=== PATIENT | male | born 1950 | race African-American/Black ===

== ENCOUNTER 2017-07-02 23:16 | Emergency (ER) | payer OTHER ==
[2017-07-03] MEDS ORDERED: ACETAMINOPHEN 500 MG TAB ONE (00:40)
[2017-07-03] MEDS ORDERED: IBUPROFEN 200 MG TAB PO ONE (00:40)
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
== END 2017-07-03 01:06 | disposition home or self-care (01) ==
LOC: ER 23:16
DX: M43.6 Torticollis (principal); I10 Essential (primary) hypertension; E11.9 Type 2 diabetes mellitus without complications; X58.XXXA Exposure to other specified factors, initial encounter; Y93.9 Activity, unspecified; Y92.009 Unspecified place in unspecified non-institutional (private) residence as the place of occurrence of the external cause; Z79.82 Long term (current) use of aspirin; Z88.0 Allergy status to penicillin; Z88.1 Allergy status to other antibiotic agents
CPT/HCPCS: 99283

== ENCOUNTER 2018-05-03 02:04 | Emergency (ER) | payer OTHER ==
[2018-05-03] MEDS ORDERED: NA CHLORIDE 0.9% 1,000 ML ONE (03:08)
[2018-05-03 03:11] LABS: Absolute Lymphocytes (CBC) 2.6 K/uL (0.7-4.9); Absolute Monocytes 0.8 K/uL (0.1-1.3); Absolute Neutrophil 4.6 K/uL (1.8-8.0); Basophils % 0.8 % (0-1.3); Eosinophils % 5.7 % (0-4.4); Hematocrit 41.8 % (39.6-49.0); Lymphocytes % 30.7 % (15.3-44.8); MPV 8.2 fL (7.6-11.3); Monocytes % 8.8 % (3.3-12.3); RBC Red Blood Cell Count 4.54 M/uL (4.33-5.43)
[2018-05-03 03:26] LABS: Albumin 3.8 g/dL (3.4-5.0); Bilirubin Direct 0.1 mg/dL (0-0.2); Bilirubin Total 0.4 mg/dL (0.2-1.0); Potassium 3.5 mmol/L (3.5-5.1); Protein, Total 7.6 g/dL (6.4-8.2)
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
--- NOTE | 2018-05-03 08:30 | RAD REPORT ---
EXAM DESCRIPTION: RAD - Abdomen Single View - 05/03/2018 3:39 am CLINICAL HISTORY: ABD PAIN Pain COMPARISON: No comparisons FINDINGS: The bowel gas pattern is non-obstructive. No evidence of free air or pneumatosis. No suspi cious calcifications. No significant bony findings. IMPRESSION: Negative examination.
== END 2018-05-03 04:47 | disposition home or self-care (01) ==
LOC: ER 02:04
DX: K59.00 Constipation, unspecified (principal); E11.9 Type 2 diabetes mellitus without complications; E78.00 Pure hypercholesterolemia, unspecified; I10 Essential (primary) hypertension; Z79.84 Long term (current) use of oral hypoglycemic drugs; Z79.899 Other long term (current) drug therapy
CPT/HCPCS: 36415; 74018; 80048; 80076; 83690; 85025; 96360; 96361; 99284; J7030

== ENCOUNTER 2018-11-17 08:09 | Emergency (ER) | payer OTHER ==
[2018-11-17] MEDS ORDERED: LEVALBUTEROL 1.25 MG/3 ML NEB ONE (08:23)
[2018-11-17] MEDS ORDERED: NA CHLORIDE 0.9% 1,000 ML ONE ×3 (08:29→09:38)
[2018-11-17 08:38] LABS: Absolute Lymphocytes (CBC) 2.4 K/uL (0.7-4.9); Hematocrit 42.5 % (39.6-49.0); Lymphocytes % 18.4 % (15.3-44.8); MPV 7.3 fL (7.6-11.3); RBC Red Blood Cell Count 4.69 M/uL (4.33-5.43)
[2018-11-17 08:46] LABS: Protime INR 1.21
[2018-11-17 08:56] LABS: ALT/SGPT 20 U/L (12-78); AST/SGOT 20 U/L (15-37); Albumin 3.1 g/dL (3.4-5.0); Alkaline Phosphatase 68 U/L (45-117); BUN Blood Urea Nitrogen 13 mg/dL (7-18); Bicarbonate 27 mmol/L (21-32); Bilirubin Direct 0.1 mg/dL (0-0.2); Bilirubin Total 0.4 mg/dL (0.2-1.0); Glucose Level 234 mg/dL (74-106); Magnesium 1.6 mg/dL (1.8-2.4); NT PRO-BNP 15 pg/mL (<125); Protein, Total 8.2 g/dL (6.4-8.2); Sodium Level 133 mmol/L (136-145); Troponin (Emerg Dept Use Only) < 0.02 ng/mL (0.0-0.045)
--- NOTE | 2018-11-17 08:59 | RAD REPORT ---
EXAM DESCRIPTION: Gill Mercer And Antoine (2 Views)11/17/2018 8:42 am CLINICAL HISTORY: Shortness of breath COMPARISON: None FINDINGS: Moderate bilateral patchy alveolar opacities are present. The heart probably is normal size. Mild prominence of the nusrat IMPRESSION: Moderate bilateral patchy alveolar opacities probably represent pneumonia. Mild prominence of the nusrat may represent pulmonary vessels or mild lymphadenopathy. If it is lymphad enopathy it may be reactive in nature. Follow-up chest x-ray after treatment recommended to reassess the lungs and nusrat
[2018-11-17] MEDS ORDERED: CEFTRIAXONE/SWI 1gm 1 GM/10 ML SYR ONE (09:09)
[2018-11-17] MEDS ORDERED: AZITHROMYCIN 250 MG TAB ONE (09:09)
[2018-11-17] MEDS ORDERED: ACETAMINOPHEN 325 MG TABLET ONE (09:31)
[2018-11-17] MEDS ORDERED: Magnesium Sulfate 2gm IVPB 2 G/50 ML BAG IV ONE (09:55)
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
--- NOTE | 2018-11-17 16:29 | EKG ---
Test Date: 2018-11-17 Test Time: 08:22:57 Radiologic Technologist Mammogram: KRISTINA MEASUREMENT RESULTS: Intervals: Rate: 124 MS: 158 QRSD: 80 QT: 306 QTc: 439 [place]: P: 33 MS: 158 QRS: -2 T: 46 INTERPRETIVE STATEMENTS: Sinus tachycardia Otherwise normal ECG Compared to ECG 11/18/1998 10:05:00 Sinus bradycardia no longer present ST (T wave) deviation no longer present Possible ischemia no longer present Electronically Signed On 11-17-18 16:26:15 CDT by Delvin Alegria
== END 2018-11-17 10:40 ==
LOC: ER 08:09
DX: J18.9 Pneumonia, unspecified organism (principal); R09.02 Hypoxemia; E83.42 Hypomagnesemia; F17.220 Nicotine dependence, chewing tobacco, uncomplicated; I10 Essential (primary) hypertension; E11.9 Type 2 diabetes mellitus without complications; Z88.0 Allergy status to penicillin; Z88.1 Allergy status to other antibiotic agents
CPT/HCPCS: 96365; 96361; 93005; 87040 ×2; 85025; 80048; 36415; 83735; 85610; 80076; 83605; 84484; 83880; 71046; 96375; 99285; J3475; J0696; J7030 ×3

== ENCOUNTER 2019-02-21 13:21 | Emergency (ER) | payer OTHER ==
[2019-02-21 14:06] LABS: Absolute Lymphocytes (CBC) 1.2 K/uL (0.7-4.9); Basophils % 0.7 % (0-1.3); Hematocrit 43.1 % (39.6-49.0); Lymphocytes % 10.5 % (15.3-44.8); MPV 8.7 fL (7.6-11.3); RBC Red Blood Cell Count 4.61 M/uL (4.33-5.43)
[2019-02-21] MEDS ORDERED: GLUCAGON 1 MG/VIAL IM PRN (14:09)
[2019-02-21] MEDS ORDERED: D50W 25 GM/50 ML SYRINGE IV PRN (14:09)
[2019-02-21] MEDS ORDERED: INSULIN -REGULAR HUMAN 50 UNIT/0.5 ML ML ONE (14:12)
[2019-02-21] MEDS ORDERED: INSULIN -REGULAR HUMAN 100 UNIT in NA CHLORIDE 0.9% 100 ML IV SCH (14:15)
[2019-02-21 14:23] LABS: Albumin 3.9 g/dL (3.4-5.0); Bilirubin Direct 0.1 mg/dL (0-0.2); Bilirubin Total 0.3 mg/dL (0.2-1.0); Potassium 4.8 mmol/L (3.5-5.1); Protein, Total 7.6 g/dL (6.4-8.2)
[2019-02-21] MEDS ORDERED: NA CHLORIDE 0.9% 500 ML ONE (14:31)
[2019-02-21 15:50] LABS: Blood Morphology Comment NOT SEEN (NOT SEEN); Platelet Estimate ADEQ
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
[2019-02-21 18:50] VITALS: BP 110/80; TEMP 98; O2SAT 100
== END 2019-02-21 18:34 | disposition home or self-care (01) ==
LOC: ER 13:21
DX: E11.65 Type 2 diabetes mellitus with hyperglycemia (principal); I10 Essential (primary) hypertension; E78.00 Pure hypercholesterolemia, unspecified; Z79.82 Long term (current) use of aspirin; Z88.0 Allergy status to penicillin; Z88.1 Allergy status to other antibiotic agents; Z88.2 Allergy status to sulfonamides; Z88.8 Allergy status to other drugs, medicaments and biological substances
CPT/HCPCS: 96361; 85025; 80048; 36415; 82947 ×5; 80076; 83690; 96374; 99284; J7040

== ENCOUNTER 2020-08-23 04:01 | Emergency (ER) | payer OTHER ==
[2020-08-23] MEDS ORDERED: METHYLPREDNISOLONE 125 MG INJ ONE (04:47)
[2020-08-23] MEDS ORDERED: KETOROLAC 30 MG/ML INJ ONE (04:47)
--- NOTE | 2020-08-23 04:47 | EDPHYS ---
Physician Documentation [facility] Name: Ronald Lino Age: 70 yrs Sex: Male : 1950 Arrival Date: 08/23/2020 Time: 04:04 Bed 17 Private MD: ED Physician Jordon Hawthorne HPI: 08/23 04:40 This 70 yrs old Black Male presents to ER via Ambulatory with complaints of Hand Pain. rn 04:40 The patient or guardian reports pain. The complaints affect the IP of right thumb, MCP rn of right thumb, PIP of right index finger, MCP of right index finger, PIP of right middle finger, MCP of right middle finger, PIP of right ring finger, MCP of right ring finger, DIP of right little finger and MCP of right little finger. Onset: The symptoms/episode began/occurred 2 day(s) ago. Modifying factors: The symptoms are alleviated by nothing, the symptoms are aggravated by making a fist, turning grgigs. Associated signs and symptoms: Pertinent negatives: cyanosis distally, fever, numbness distally, tingling distally. Severity of symptoms: At their worst the symptoms were mild, in the emergency department the symptoms are unchanged. The patient has not experienced similar symptoms in the past. The patient has not recently seen a physician. Reports 2 year diagnosis of rheumatoid arthritis, now having 2 days of right hand and wrist joint pain, no fever, no trauma. Reports on daily 5mg prednisone. . Historical: - Allergies: 04:24 PENICILLINS; ad5 - Immunization history:: Adult Immunizations up to date. - Social history:: Smoking status: unknown. - Family history:: not pertinent. - Hospitalizations: : No recent hospitalization is reported. ROS: 04:40 Constitutional: Negative for fever, chills, and weight loss, MS/Extremity: Negative for rn injury and deformity, Skin: Negative for injury, rash, and discoloration, Neuro: Negative for numbness, tingling Exam: 04:40 Constitutional: This is a well developed, well nourished patient who is awake, alert, rn and in no acute distress. MS/ Extremity: Pulses equal, no cyanosis. Neurovascular intact. No warmth, no deformity, no signs of trauma, no sign of cellulitis. Vital Signs: 04:22 BP 159 / 113; Pulse 71; Resp 18 S; Temp 97.9(O); Pulse Ox 98% on R/A; Weight 113.85 kg; ad5 Height 5 ft. 11 in. (180.34 cm); Pain 8/10; 04:54 BP 132 / 94; Pulse 66; Resp 16 S; Pulse Ox 96% on R/A; ad5 04:22 Body Mass Index 35.01 (113.85 kg, 180.34 cm) ad5 MDM: 04:05 Patient medically screened. rn 04:40 Differential diagnosis: arthritis. Data reviewed: vital signs, nurses notes, and as a rn result, I will discharge patient. Counseling: I had a detailed discussion with the patient and/or guardian regarding: the historical points, exam findings, and any diagnostic results supporting the discharge/admit diagnosis, the need for outpatient follow up, to return to the emergency department if symptoms worsen or persist or if there are any questions or concerns that arise at home. Special discussion: I discussed with the patient/guardian in detail that at this point there is no indication for admission to the hospital. It is understood, however, that if the symptoms persist or worsen the patient needs to return immediately for re-evaluation. Based on the history and exam findings, there is no indication for further emergent testing or inpatient evaluation. I discussed with the patient/guardian the need to see the information clerk cashier for further evaluation of the symptoms. Administered Medications: 04:33 Drug: TORadol (ketorolac) 30 mg Route: IM; Site: right deltoid; ad5 04:48 Follow up: Response: No adverse reaction ad5 04:34 Drug: SOLU-Medrol (methylPREDNISolone sodium succinate) 125 mg Route: IM; Site: left ad5 deltoid; 04:48 Follow up: Response: No adverse reaction ad5 Disposition: 08/23/20 04:46 Discharged to Home. Impression: Rheumatoid arthritis. - Condition is Stable. - Discharge Instructions: Rheumatoid Arthritis. - Prescriptions for Medrol (Eliu) 4 mg Oral Tablets, Dose Pack - take 1 tablet by ORAL route as directed - follow package instructions; 1 packet. - Medication Reconciliation Form, Thank You Letter, Antibiotic Education, Prescription Opioid Use form. - Follow up: Private Physician; When: As needed; Reason: Recheck today's complaints, Re-evaluation by your physician. - Problem is an ongoing problem. - Symptoms have improved. Signatures: Jordon Hawthorne MD MD rn Davidson, Andrea ad5 Corrections: (The following items were deleted from the chart) 04:55 04:46 08/23/2020 04:46 Discharged to Home. Impression: Rheumatoid arthritis. Condition ad5 is Stable. Forms are Medication Reconciliation Form, Thank You Letter, Antibiotic Education, Prescription Opioid Use. Follow up: Private Physician; When: As needed; Reason: Recheck today's complaints, Re-evaluation by your physician. Problem is an ongoing problem. Symptoms have improved. rn
--- NOTE | 2020-08-23 04:47 | ER ---
Nurse's Notes [facility] Name: Ronald Lino Age: 70 yrs Sex: Male : 1950 Arrival Date: 08/23/2020 Time: 04:04 Bed 17 Private MD: Diagnosis: Rheumatoid arthritis Presentation: 08/23 04:22 Chief complaint: Patient states: Pt c/o R hand pain that began yesterday, worse today. ad5 Hx of RA, on prednisone for this. Pt denies known injury, distal SMCs intact. No obvious deformity, pain worse with mvmt. Coronavirus screen: Client denies travel out of the [place] in the last 14 days. At this time, the client does not indicate any symptoms associated with coronavirus-19. Ebola Screen: Patient negative for fever greater than or equal to 101.5 degrees Fahrenheit, and additional compatible Ebola Virus Disease symptoms Patient denies exposure to infectious person. Patient denies travel to an Ebola-affected area in the 21 days before illness onset. No symptoms or risks identified at this time. Initial Sepsis Screen: Does the patient meet any 2 criteria? No. Patient's initial sepsis screen is negative. Does the patient have a suspected source of infection? No. Patient's initial sepsis screen is negative. Risk Assessment: Do you want to hurt yourself or someone else? Patient reports no desire to harm self or others. Onset of symptoms was August 22, 2020. 04:22 Method Of Arrival: Ambulatory ad5 04:22 Acuity: LILA 4 ad5 Historical: - Allergies: 04:24 PENICILLINS; ad5 - Immunization history:: Adult Immunizations up to date. - Social history:: Smoking status: unknown. - Family history:: not pertinent. - Hospitalizations: : No recent hospitalization is reported. Screenin:26 Abuse screen: Denies threats or abuse. Denies injuries from another. Nutritional ad5 screening: No deficits noted. Tuberculosis screening: No symptoms or risk factors identified. Fall Risk None identified. Assessment: 04:24 General: Appears in no apparent distress. comfortable, Behavior is calm, cooperative, ad5 appropriate for age. Pain: Complains of pain in right hand Pain does not radiate. Neuro: No deficits noted. Level of Consciousness is awake, alert, obeys commands, Oriented to person, place, time, situation, Appropriate for age Hazard Mitigation Officer are equal bilaterally Moves all extremities. Gait is steady, Speech is normal, Facial symmetry appears normal. Cardiovascular: No deficits noted. Denies chest pain, palpitations, shortness of breath, Heart tones present Capillary refill < 3 seconds Clubbing of nail beds is absent JVD is absent Patient's skin is warm and dry. Respiratory: No deficits noted. Airway is patent Trachea midline Respiratory effort is even, unlabored, Respiratory pattern is regular, symmetrical. GI: No deficits noted. : No deficits noted. EENT: No deficits noted. Derm: No deficits noted. Musculoskeletal: Circulation, motion, and sensation intact. Capillary refill < 3 seconds, Range of motion: intact in all extremities, Reports pain in right hand. 04:54 Reassessment: Patient and/or family updated on plan of care and expected duration. Pain ad5 level reassessed. Patient is alert, oriented x 3, equal unlabored respirations, skin warm/dry/pink. Patient states feeling better. Patient states symptoms have improved. Pain: Complains of pain in right hand Pain currently is 5 out of 10 on a pain scale. Vital Signs: 04:22 BP 159 / 113; Pulse 71; Resp 18 S; Temp 97.9(O); Pulse Ox 98% on R/A; Weight 113.85 kg; ad5 Height 5 ft. 11 in. (180.34 cm); Pain 8/10; 04:54 BP 132 / 94; Pulse 66; Resp 16 S; Pulse Ox 96% on R/A; ad5 04:22 Body Mass Index 35.01 (113.85 kg, 180.34 cm) ad5 ED Course: 04:04 Patient arrived in ED. bp1 04:05 Jordon Hawthorne MD is Attending Physician. rn 04:16 Aristeo Sánchez is Primary Nurse. ad5 04:24 Triage completed. ad5 04:24 Arm band placed on. ad5 04:26 Patient has correct armband on for positive identification. Bed in low position. Call ad5 light in reach. Side rails up X 1. Pulse ox on. NIBP on. Door closed. Noise minimized. 04:54 No provider procedures requiring assistance completed. Patient did not have IV access ad5 during this emergency room visit. Administered Medications: 04:33 Drug: TORadol (ketorolac) 30 mg Route: IM; Site: right deltoid; ad5 04:48 Follow up: Response: No adverse reaction ad5 04:34 Drug: SOLU-Medrol (methylPREDNISolone sodium succinate) 125 mg Route: IM; Site: left ad5 deltoid; 04:48 Follow up: Response: No adverse reaction ad5 Outcome: 04:46 Discharge ordered by . rn 04:55 Discharged to home ambulatory. ad5 04:55 Condition: stable 04:55 Discharge instructions given to patient, Instructed on discharge instructions, follow up and referral plans. medication usage, Demonstrated understanding of instructions, follow-up care, medications. 04:55 Patient left the ED. ad5 Signatures: Jordon Hawthorne MD MD rn [place]ia[place], Brittany bp1 Davidson, Andrea ad5
[2020-08-23 05:19] VITALS: TEMP 97.9
[2020-08-23 05:21] VITALS: BP 132/94; O2SAT 96
== END 2020-08-23 04:55 | disposition home or self-care (01) ==
LOC: ER 04:01
DX: M06.9 Rheumatoid arthritis, unspecified (principal)
CPT/HCPCS: 96372; 99283; J2930

== ENCOUNTER 2020-10-12 20:46 | Emergency (ER) | payer OTHER ==
--- NOTE | 2020-10-12 21:58 | RAD REPORT ---
EXAM DESCRIPTION: RAD - Chest Single View - 10/12/2020 9:46 pm CLINICAL HISTORY: anxiety spell Chest pain. COMPARISON: <Comparisons> FINDINGS: Portable technique limits examination quality. The lungs are grossly clear. The heart is normal in size. No displaced fractures. IMPRESSION: No acute intrathoracic process suspected.
[2020-10-12 22:19] LABS: Absolute Lymphocytes (CBC) 3.9 K/uL (0.7-4.9); Basophils % 1.3 % (0-1.3); Hematocrit 43.2 % (39.6-49.0); Lymphocytes % 35.8 % (15.3-44.8); MPV 8.4 fL (7.6-11.3)
[2020-10-12 22:30] LABS: Potassium 4.4 mmol/L (3.5-5.1)
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
--- NOTE | 2020-10-12 23:21 | EDPHYS ---
Physician Documentation [facility] Name: Ronald Lino Age: 70 yrs Sex: Male : 1950 Arrival Date: 10/12/2020 Time: 20:58 Bed 2 Private MD: ED Physician Rajat Lim HPI: 10/12 21:34 This 70 yrs old Black Male presents to ER via Ambulatory with complaints of Dizziness. pkl 21:34 Feeling anxious. Onset: The symptoms/episode began/occurred just prior to arrival, and pkl improved. Historical: - Allergies: 21:07 PENICILLINS; em - PMHx: 21:07 Diabetes mellitus; Atrial fibrillation; RA; em - PSHx: 21:07 knee; em - Immunization history:: Adult Immunizations up to date. - Social history:: Smoking status: Patient denies any tobacco usage or history of. ROS: 21:34 Eyes: Negative for injury, pain, redness, and discharge, ENT: Negative for injury, pkl pain, and discharge, Neck: Negative for injury, pain, and swelling, Cardiovascular: Negative for chest pain, palpitations, and edema, Respiratory: Negative for shortness of breath, cough, wheezing, and pleuritic chest pain, Abdomen/GI: Negative for abdominal pain, nausea, vomiting, diarrhea, and constipation, Back: Negative for injury and pain, : Negative for injury, bleeding, discharge, and swelling, MS/Extremity: Negative for injury and deformity, Skin: Negative for injury, rash, and discoloration, Neuro: Negative for headache, weakness, numbness, tingling, and seizure. 21:34 Psych: Positive for anxiety. Exam: 21:34 Head/Face: Normocephalic, atraumatic. Eyes: Pupils equal round and reactive to light, pkl extra-ocular motions intact. Lids and lashes normal. Conjunctiva and sclera are non-icteric and not injected. Cornea within normal limits. Periorbital areas with no swelling, redness, or edema. ENT: Nares patent. No nasal discharge, no septal abnormalities noted. Tympanic membranes are normal and external auditory canals are clear. Oropharynx with no redness, swelling, or masses, exudates, or evidence of obstruction, uvula midline. Mucous membranes moist. Neck: Trachea midline, no thyromegaly or masses palpated, and no cervical lymphadenopathy. Supple, full range of motion without nuchal rigidity, or vertebral point tenderness. No Meningismus. Chest/axilla: Normal chest wall appearance and motion. Nontender with no deformity. No lesions are appreciated. Cardiovascular: Regular rate and rhythm with a normal S1 and S2. No gallops, murmurs, or rubs. Normal PMI, no JVD. No pulse deficits. Respiratory: Lungs have equal breath sounds bilaterally, clear to auscultation and percussion. No rales, rhonchi or wheezes noted. No increased work of breathing, no retractions or nasal flaring. Abdomen/GI: Soft, non-tender, with normal bowel sounds. No distension or tympany. No guarding or rebound. No evidence of tenderness throughout. Back: No spinal tenderness. No costovertebral tenderness. Full range of motion. Skin: Warm, dry with normal turgor. Normal color with no rashes, no lesions, and no evidence of cellulitis. MS/ Extremity: Pulses equal, no cyanosis. Neurovascular intact. Full, normal range of motion. Neuro: Awake and alert, GCS 15, oriented to person, place, time, and situation. Cranial nerves II-XII grossly intact. Motor strength 5/5 in all extremities. Sensory grossly intact. Cerebellar exam normal. Normal gait. 21:34 Psych: Behavior/mood is pleasant, Affect is calm, Oriented to person, place, time, Patient has no thoughts/intents to harm self or others. Judgement / Insight is normal. Vital Signs: 21:05 BP 155 / 87; Pulse 83; Resp 15; Temp 98.0(O); Pulse Ox 99% on R/A; Weight 114.31 kg; em Height 5 ft. 11 in. (180.34 cm); Pain 0/10; 23:33 BP 135 / 89; Pulse 83; Resp 15; Temp 98.2; Pulse Ox 100% on R/A; Pain 0/10; bs2 21:05 Body Mass Index 35.15 (114.31 kg, 180.34 cm) em MDM: 21:15 Patient medically screened. pkl 23:17 Data reviewed: vital signs, nurses notes, lab test result(s), EKG, radiologic studies, pkl CT scan. ED course: Patient feeling better. Asymptomatic. Advised to follow up with PCP in 2 to 3 days. Advised to return if necessary Patient understood instruction. 10/12 21:32 Order name: CBC with Diff; Complete Time: 22:40 pkl 10/12 21:32 Order name: Chem 7; Complete Time: 22:40 pkl 10/12 21:32 Order name: XRAY CXR (1 view); Complete Time: 22:40 pkl 10/12 21:32 Order name: EKG; Complete Time: 21:33 pkl Administered Medications: No medications were administered Disposition Summary: 10/12/20 23:20 Discharge Ordered Location: Home pkl Problem: new pkl Symptoms: have improved pkl Condition: Stable pkl Diagnosis - Anxiety episode pkl Followup: pkl - With: Private Physician - When: 2 - 3 days - Reason: Re-evaluation by your physician Forms: - Medication Reconciliation Form pkl - Thank You Letter pkl - Antibiotic Education pkl - Prescription Opioid Use pkl Signatures: Dispatcher [employer] Rajat Barton MD MD pkl Gabriele Valdovinos, RN RN em
[2020-10-12 23:44] VITALS: BP 135/89; TEMP 98.2; O2SAT 100
--- NOTE | 2020-10-13 13:46 | EKG ---
Test Date: 2020-10-12 Test Time: 23:13:21 Assembler Hydraulic Backhoe: NISH MEASUREMENT RESULTS: Intervals: Rate: 67 MA: 158 QRSD: 82 QT: 364 QTc: 384 [place]: P: 37 MA: 158 QRS: -6 T: 20 INTERPRETIVE STATEMENTS: Normal sinus rhythm Normal ECG Compared to ECG 11/17/2018 08:22:57 Sinus tachycardia no longer present Electronically Signed On 10-13-20 13:45:28 CDT by Delvin Alegria
== END 2020-10-12 23:34 | disposition home or self-care (01) ==
LOC: ER 20:46
DX: F41.9 Anxiety disorder, unspecified (principal); Z88.0 Allergy status to penicillin
CPT/HCPCS: 36415; 71045; 80048; 85025; 93005; 99284

== ENCOUNTER 2021-05-30 21:01 | Emergency (ER) | payer OTHER ==
[2021-05-30 21:45] LABS: Absolute Lymphocytes (CBC) 3.6 K/uL (0.7-4.9); Hematocrit 45.8 % (39.6-49.0); Lymphocytes % 40.7 % (15.3-44.8); MPV 7.9 fL (7.6-11.3); RBC Red Blood Cell Count 5.08 M/uL (4.33-5.43)
[2021-05-30 22:03] LABS: ALT/SGPT 25 U/L (12-78); AST/SGOT 19 U/L (15-37); Albumin 3.8 g/dL (3.4-5.0); Alkaline Phosphatase 79 U/L (45-117); BUN Blood Urea Nitrogen 11 mg/dL (7-18); Bicarbonate 25 mmol/L (21-32); Bilirubin Direct < 0.1 mg/dL (0-0.2); Bilirubin Total 0.3 mg/dL (0.2-1.0); Glucose Level 205 mg/dL (74-106); Magnesium 2.1 mg/dL (1.8-2.4); NT PRO-BNP 19 pg/mL (<125); Potassium 3.7 mmol/L (3.5-5.1); Protein, Total 7.6 g/dL (6.4-8.2); Sodium Level 136 mmol/L (136-145)
[2021-05-30] MEDS ORDERED: MAGNES/ALUMIN/SIMET 30ML UCUP ONE (22:33)
[2021-05-30] MEDS ORDERED: PANTOPRAZOLE 40 MG INJ ONE (22:33)
[2021-05-30] MEDS ORDERED: LIDOCAINE VISCOUS 2% SOLN 15 ML UDC ONE (22:34)
--- NOTE | 2021-05-31 00:55 | EDPHYS ---
Physician Documentation [facility] Name: Ronald Lino Age: 70 yrs Sex: Male : 1950 Arrival Date: 05/30/2021 Time: 21:04 Bed 5 Private MD: ED Physician Elie Canada HPI: 05/30 23:21 This 70 yrs old Black Male presents to ER via Ambulatory with complaints of Chest Pain. kb 23:21 The patient or guardian reports chest pain that is located primarily in the substernal kb area. Onset: yesterday. The pain does not radiate. Associated signs and symptoms: The patient has no apparent associated signs or symptoms. The chest pain is described as burning. Duration: The patient or guardian reports a single episode, that is still ongoing. Modifying factors: The symptoms are alleviated by nothing. the symptoms are aggravated by coffee and grapefruit. Severity of pain: At its worst the pain was mild moderate in the emergency department the pain is unchanged. The patient has experienced similar episodes in the past, a few times. The patient has not recently seen a physician. Pt reports burning pain to middle of chest. States he has GERD, but wanted to be on the safe side and come get checked out. Pain started yesterday. Historical: - Allergies: 21:14 PENICILLINS; ll3 - PMHx: 21:14 Atrial fibrillation; diabetes mellitus; RA; ll3 - PSHx: 21:14 knee; ll3 - Immunization history:: Client reports receiving the 2nd dose of the Covid vaccine. - Social history:: Smoking status: Patient denies any tobacco usage or history of. ROS: 23:18 Constitutional: Negative for fever, chills, and weight loss. kb 23:18 Cardiovascular: Positive for chest pain, Negative for edema, orthopnea, palpitations, paroxysmal nocturnal dyspnea. 23:18 All other systems are negative. Exam: 23:17 Constitutional: This is a well developed, well nourished patient who is awake, alert, kb and in no acute distress. Head/Face: Normocephalic, atraumatic. ENT: Moist Mucous membranes Cardiovascular: Regular rate and rhythm with a normal S1 and S2. No gallops, murmurs, or rubs. No pulse deficits. Respiratory: Respirations even and unlabored. No increased work of breathing. Talking in full sentences Abdomen/GI: Soft, non-tender. No distention Skin: Warm, dry with normal turgor. Normal color. MS/ Extremity: Pulses equal, no cyanosis. Neurovascular intact. Full, normal range of motion. Neuro: Awake and alert, GCS 15, oriented to person, place, time, and situation. Moves all extremities. Normal gait. Psych: Awake, alert, with orientation to person, place and time. Behavior, mood, and affect are within normal limits. 23:17 ECG was reviewed by the Attending Physician. Vital Signs: 21:26 BP 160 / 92; Pulse 78; Resp 18; Pulse Ox 100% ; Weight 114.31 kg; Height 5 ft. 11 in. lr4 (180.34 cm); 22:40 BP 137 / 78; Pulse 80; Resp 16; Pulse Ox 100% on R/A; st1 05/31 01:04 BP 121 / 94; Pulse 72; Resp 15; Pulse Ox 99% on R/A; ll3 05/30 21:26 Body Mass Index 35.15 (114.31 kg, 180.34 cm) lr4 MDM: 05/30 21:08 Patient medically screened. 23:17 Data reviewed: vital signs, nurses notes. Data interpreted: Pulse oximetry: on room air kb is 100 %. Interpretation: normal. 23:40 Counseling: I had a detailed discussion with the patient and/or guardian regarding: the historical points, exam findings, and any diagnostic results supporting the discharge/admit diagnosis, lab results, radiology results, the need for outpatient follow up, a family practitioner, to return to the emergency department if symptoms worsen or persist or if there are any questions or concerns that arise at home. 05/31 00:54 Data reviewed: I have discussed the patient's presentation/case with the attending Emergency Department Physician;. 05/30 21:08 Order name: Basic Metabolic Panel; Complete Time: 22:06 kb 05/30 21:08 Order name: CBC with Diff; Complete Time: 21:48 kb 05/30 21:08 Order name: LFT's; Complete Time: 22:06 kb 05/30 21:08 Order name: Magnesium; Complete Time: 22:06 kb 05/30 21:08 Order name: NT PRO-BNP; Complete Time: 22:06 kb 05/30 21:08 Order name: PT-INR; Complete Time: 21:48 kb 05/30 21:08 Order name: Troponin HS; Complete Time: 22:06 kb 05/30 21:08 Order name: XRAY Chest (1 view) kb 05/30 21:08 Order name: EKG; Complete Time: 21:09 kb 05/30 21:08 Order name: Cardiac monitoring; Complete Time: 21:29 kb 05/30 23:01 Order name: Troponin High Sensitivity; Complete Time: 00:53 kb 05/30 23:01 Order name: EKG; Complete Time: 23:01 kb 05/30 21:08 Order name: EKG - Nurse/Tech; Complete Time: 21:25 kb 05/30 21:08 Order name: IV Saline Lock; Complete Time: 21:25 kb 05/30 21:08 Order name: Labs collected and sent; Complete Time: 21:26 kb 05/30 21:08 Order name: O2 Per Protocol; Complete Time: 21:26 kb 05/30 21:08 Order name: O2 Sat Monitoring; Complete Time: 21:26 kb 05/30 23:01 Order name: EKG - Nurse/Tech; Complete Time: 23:08 kb EC/18 23:17 Rate is 61 beats/min. Rhythm is regular. QRS [place] is Normal. [place] interval is normal at kb 164 msec. QRS interval is normal at 88 msec. QT interval is normal at 388 msec. Administered Medications: 22:38 Drug: ProTONIX (pantoprazole) 40 mg Route: IVP; Site: right antecubital; lr4 22:39 Drug: GI Cocktail without - (Maalox Suspension 30 ml, Lidocaine Liquid 2 % 15 lr4 ml) Route: PO; Disposition: 05/31 02:34 Co-signature as Attending Physician, Elie Canada MD I agree with the assessment and kdr plan of care. Disposition Summary: 05/31/21 00:54 Discharge Ordered Location: Home kb Condition: Stable kb Diagnosis - Chest pain, unspecified kb Followup: kb - With: Emergency Department - When: As needed - Reason: Worsening of condition Followup: kb - With: Private Physician - When: 2 - 3 days - Reason: Recheck today's complaints, Continuance of care, Re-evaluation by your physician Discharge Instructions: - Discharge Summary Sheet kb - Nonspecific Chest Pain, Adult, [id number] kb Forms: - Medication Reconciliation Form kb - Thank You Letter kb - Antibiotic Education kb - Prescription Opioid Use kb Signatures: Dispatcher [employer] EDJazmin Harris, MUSHROOM GROWING SUPERVISOR-Edilberto ZURITA-Elie Gonsales MD MD kdr Loubet, Lynsea, RN RN ll3 Jemima Martinez RN RN lr4 Corrections: (The following items were deleted from the chart) 05/30 21:31 21:09 Chest Single View+RAD.RAD.BRZ ordered. EDMS EDMS
--- NOTE | 2021-05-31 00:55 | ER ---
Nurse's Notes [facility] Name: Ronald Lino Age: 70 yrs Sex: Male : 1950 Arrival Date: 05/30/2021 Time: 21:04 Bed 5 Private MD: Diagnosis: Chest pain, unspecified Presentation: 05/30 21:11 Chief complaint: Patient states: States "having a burning sensation in chest, thought ll3 it might be heart burn but it didn't go away, wanted to come get checked out because I am on digitalis". Coronavirus screen: Vaccine status: Patient reports being unvaccinated. At this time, the client does not indicate any symptoms associated with coronavirus-19. Ebola Screen: No symptoms or risks identified at this time. Initial Sepsis Screen: Does the patient meet any 2 criteria? No. Patient's initial sepsis screen is negative. Does the patient have a suspected source of infection? No. Patient's initial sepsis screen is negative. Risk Assessment: Do you want to hurt yourself or someone else? Patient reports no desire to harm self or others. Onset of symptoms was May 29, 2021. 21:11 Method Of Arrival: Ambulatory ll3 21:11 Acuity: LILA 3 ll3 Triage Assessment: 21:14 General: Appears in no apparent distress. comfortable, Behavior is calm, cooperative. ll3 Pain: Complains of pain in CP. Cardiovascular: Reports chest pain. Respiratory: Respiratory effort is even, unlabored, Respiratory pattern is regular, symmetrical. Derm: Skin is pink, warm \\T\\ dry. Historical: - Allergies: 21:14 PENICILLINS; ll3 - PMHx: 21:14 Atrial fibrillation; diabetes mellitus; RA; ll3 - PSHx: 21:14 knee; ll3 - Immunization history:: Client reports receiving the 2nd dose of the Covid vaccine. - Social history:: Smoking status: Patient denies any tobacco usage or history of. Screenin:41 Abuse screen: Denies threats or abuse. Nutritional screening: No deficits noted. st1 Tuberculosis screening: No symptoms or risk factors identified. Fall Risk None identified. Fall in past 12 months (25 points). No secondary diagnosis (0 pts). IV access (20 points). Ambulatory Aid- None/Bed Rest/Nurse Assist (0 pts). Gait- Normal/Bed Rest/Wheelchair (0 pts) Mental Status- Oriented to own ability (0 pts). Total Rogel Fall Scale indicates No Risk (0-24 pts). Assessment: 21:23 General: Appears in no apparent distress. comfortable, Behavior is calm, cooperative. lr4 Pain: Denies pain. Pain does not radiate. Pain began 1 day ago. Neuro: No deficits noted. Neuro: Level of Consciousness is awake, alert, obeys commands, Oriented to person, place, time, situation, Appropriate for age Crew Clerk are equal bilaterally Moves all extremities. Speech is normal. Cardiovascular: No deficits noted. Respiratory: No deficits noted. GI: Pt reports off and on midsternal burning worse after eating or drinking since yesterday. Vital Signs: 21:26 BP 160 / 92; Pulse 78; Resp 18; Pulse Ox 100% ; Weight 114.31 kg; Height 5 ft. 11 in. lr4 (180.34 cm); 22:40 BP 137 / 78; Pulse 80; Resp 16; Pulse Ox 100% on R/A; st1 05/31 01:04 BP 121 / 94; Pulse 72; Resp 15; Pulse Ox 99% on R/A; ll3 05/30 21:26 Body Mass Index 35.15 (114.31 kg, 180.34 cm) lr4 ED Course: 05/30 21:04 Patient arrived in ED. jj6 21:07 Mariel Villarreal, RN is Primary Nurse. st1 21:08 Jazmin Coronado FNP-C [facility] kb 21:08 Elie Canada MD is Attending Physician. kb 21:14 Triage completed. ll3 21:14 Arm band placed on Patient placed in an exam room. ll3 21:15 EKG done. lr4 21:27 Patient has correct armband on for positive identification. Bed in low position. Call lr4 light in reach. Side rails up X 1. monitoring coordinator on. Pulse ox on. NIBP on. 21:27 No provider procedures requiring assistance completed. Inserted saline lock: 20 gauge lr4 in right antecubital area, using aseptic technique. ,using aseptic technique. started by Mariel SIMMONS. Patient maintains SpO2 saturation greater than 95% on room air. 21:29 Basic Metabolic Panel Sent. lr4 21:29 CBC with Diff Sent. lr4 21:29 LFT's Sent. lr4 21:30 Magnesium Sent. lr4 21:30 NT PRO-BNP Sent. lr4 21:30 PT-INR Sent. lr4 21:30 Troponin HS Sent. lr4 22:03 XRAY Chest (1 view) In Process Unspecified. EDMS 23:17 EKG done. lr4 05/31 00:20 Diet: Patient given juice. sf1 00:20 Troponin High Sensitivity Sent. sf1 01:05 IV discontinued, intact, bleeding controlled, No redness/swelling at site. Pressure ll3 dressing applied. Administered Medications: 05/30 22:38 Drug: ProTONIX (pantoprazole) 40 mg Route: IVP; Site: right antecubital; lr4 22:39 Drug: GI Cocktail without - (Maalox Suspension 30 ml, Lidocaine Liquid 2 % 15 lr4 ml) Route: PO; Outcome: 05/31 00:54 Discharge ordered by . kb 01:05 Discharged to home ambulatory. ll3 01:05 Condition: stable 01:05 Discharge instructions given to patient, Instructed on discharge instructions, follow up and referral plans. Demonstrated understanding of instructions, follow-up care. 01:06 Patient left the ED. ll3 Signatures: Dispatcher [employer] EDMS Jazmin Coronado, SENIOR SYSTEMS PROGRAMMER-C SENIOR SYSTEMS PROGRAMMER-CkYara [id number] Melvina Conway RN RN ll3 Mariel Villarreal RN RN st1 Pat Campbell RN RN sf1 Jemima Martinez RN RN lr4
[2021-05-31 01:33] VITALS: BP 121/94; O2SAT 99
--- NOTE | 2021-05-31 08:09 | RAD REPORT ---
EXAM DESCRIPTION: RAD - Chest Single View - 05/30/2021 10:03 pm CLINICAL HISTORY: CHEST PAIN COMPARISON: Portable 10/12/2020 TECHNIQUE: AP portable chest image was obtained 05/30/2021 10:03 pm . FINDINGS: Lung volumes are low. Interstitial markings are prominent believed be baseline pattern acc entuated by shallow inspiration. No new mass or consolidation. Interstitial pattern matches the prior study. Trachea is midline. Heart and vasculature are normal. No measurable pleural effusion and no pneumotho rax. No acute bony abnormality seen. No acute aortic findings suspected. IMPRESSION: No acute cardiopulmonary process. Above detailed findings are stable from October 2020 imaging. Baseline prominence of the interstitial pa ttern could mask an early edema or infiltrate process.
--- NOTE | 2021-05-31 18:17 | EKG ---
Test Date: 2021-05-30 Test Time: 23:17:10 Airline Radio Operator: YVAN MEASUREMENT RESULTS: Intervals: Rate: 61 MT: 164 QRSD: 88 QT: 388 QTc: 390 [place]: P: 23 MT: 164 QRS: 5 T: 14 INTERPRETIVE STATEMENTS: Normal sinus rhythm Normal ECG Compared to ECG 05/30/2021 21:15:57 No significant changes Electronically Signed On 05-31-21 18:17:10 FRUIT CANNER by Delvin Alegria
--- NOTE | 2021-05-31 18:18 | EKG ---
Test Date: 2021-05-30 Test Time: 21:15:57 Book Illustrator: YVAN MEASUREMENT RESULTS: Intervals: Rate: 66 FL: 172 QRSD: 92 QT: 382 QTc: 400 [place]: P: 46 FL: 172 QRS: 6 T: 51 INTERPRETIVE STATEMENTS: Normal sinus rhythm Normal ECG Compared to ECG 10/12/2020 23:13:21 No significant changes Electronically Signed On 05-31-21 18:17:14 DOOR LINER HELPER by Delvin Alegria
== END 2021-05-31 01:06 | disposition home or self-care (01) ==
LOC: ER 21:01
DX: R07.9 Chest pain, unspecified (principal); I48.91 Unspecified atrial fibrillation; E11.9 Type 2 diabetes mellitus without complications; Z88.0 Allergy status to penicillin
CPT/HCPCS: 93005 ×2; 85025; 80048; 36415; 83735; 85610; 80076; 84484 ×2; 83880; 71045; 96374; 99285; C9113

== ENCOUNTER 2021-11-03 21:31 | Emergency (ER) | payer OTHER ==
--- OUTSIDE RECORDS SUMMARY | 2021-11-03 21:35 | XMS REPORT | Continuity of Care Document ---
:1950 Author Organization [facility] t Address [facility] [place] [address] [place] [id number] Care Team Providers Name Role Phone Unavailable Unavailable Unavailable Problems This patient has no known problems. Allergies, Adverse Reactions, Alerts This patient has no known allergies or adverse reactions. Medications This patient has no known medications. Procedures This patient has no known procedures. Results Test Description Test Time Test Comments Results Result Comments Source Basic Metabolic Panel 2019-01-08 08:51:26 Test Item Value Reference Range Interpretation Comme nts Sodium Level (test code = Sodium Level) 142.0 mmol/L 135.0-145.0 Potassium Level (test code = Potassium Level) 3.9 mmol/L 3.5-5.1 Chloride Level (test code = Chloride Level) 101 mmol/L 98-105 CO2 (test code = CO2) 31 mmol/L 22-29 H Anion Gap (test code = Anion Gap) 10 mmol/L 7-16 BUN (test code = BUN) 12.10 mg/dL 8.00-23.00 Creatinine Level (test code = Creatinine Level) 0.90 mg/dL 0.70-1 .20 BUN/Creat Ratio (test code = BUN/Creat Ratio) 13 N Glucose Level (test code = Glucose Level) 95 mg/dL 70-115 Calcium Level (test code = Calcium Level) 9.5 mg/dL 8.3-10.5 Creatine [id number] 08:51:26 Test Item Value Reference Range Interpretation Comments CK (test code = CK) 38 U/L 39-308 L Basic Metabolic [id number] 08:51:26 Test Item Value Reference Range Interpretation Comments Sodium Level (test 142.0 mmol/L 135.0-145.0 code = Sodium Level) Potassium Level 3.9 mmol/L 3.5-5.1 (test code = Potassium Level) Chloride Level (test 101 mmol/L 98-105 code = Chloride Level) CO2 (test code = 31 mmol/L 22-29 H CO2) Anion Gap (test code 10 mmol/L 7-16 = Anion Gap) BUN (test code = 12.10 mg/dL 8.00-23.00 BUN) Creatinine Level 0.90 mg/dL 0.70-1.20 (test code = Creatinine Level) BUN/Creat Ratio 13 N (test code = BUN/Creat Ratio) Glucose Level (test 95 mg/dL 70-115 code = Glucose Level) Calcium Level (test 9.5 mg/dL 8.3-10.5 code = Calcium Level) eGFR AA (test code = >60 N eGFR (e stimated eGFR AA) mL/min/1.73 m2 Glomerular Filtration Rate ) is an estimated va lue, calculated from the patient's serum creatinine usin g the MDRD equation. It is NOT the patient 's actual GFR. The eGFR provides a more clinically usef ul measure of kidn ey disease than se rum creatinine alone.This calculation marjan es sex and race in to account, if the information is provided. If th e race is not provided, and t he patient is -Kellie n, multiply by 1.2 12. If sex is not provided, and t he patient is fema le, multiply by 0.7 42. Results for pat ients <18 years of ag e have not been validated by th e MDRD study and should be interpreted wit h caution. eGFR R esult Interpretation: eGFR > or = 60 is in the Normal RangeeGF R < 60 may mean kid silva diseaseeGFR < 1 5 may mean kidney failure Rang es recommended by the National Kidney Foundation, http://nkdep.ni h.gov Magnesium [id number] 08:51:26 Test Item Value Reference Range Interpretation Comments Magnesium Level (test code = 1.8 mg/dL 1.7-2.5 Magnesium Level) Phosphorus [id number] 08:51:26 Test Item Value Reference Range Interpretation Comments Phosphorus Level (test code = 3.20 mg/dL 2.70-4.50 Phosphorus Level) Basic Metabolic [id number] 08:51:26 Test Item Value Reference Range Interpretation Comments Sodium Level (test 142.0 mmol/L 135.0-145.0 code = Sodium Level) Potassium Level 3.9 mmol/L 3.5-5.1 (test code = Potassium Level) Chloride Level (test 101 mmol/L 98-105 code = Chloride Level) CO2 (test code = 31 mmol/L 22-29 H CO2) Anion Gap (test code 10 mmol/L 7-16 = Anion Gap) BUN (test code = 12.10 mg/dL 8.00-23.00 BUN) Creatinine Level 0.90 mg/dL 0.70-1.20 (test code = Creatinine Level) BUN/Creat Ratio 13 N (test code = BUN/Creat Ratio) Glucose Level (test 95 mg/dL 70-115 code = Glucose Level) Calcium Level (test 9.5 mg/dL 8.3-10.5 code = Calcium Level) eGFR AA (test code = >60 N eGFR (e stimated eGFR AA) mL/min/1.73 m2 Glomerular Filtration Rate ) is an estimated va lue, calculated from the patient's serum creatinine usin g the MDRD equation. It is NOT the patient 's actual GFR. The eGFR provides a more clinically usef ul measure of kidn ey disease than se rum creatinine alone.This calculation marjan es sex and race in to account, if the information is provided. If th e race is not provided, and t he patient is -Kellie n, multiply by 1.2 12. If sex is not provided, and t he patient is fema le, multiply by 0.7 42. Results for pat ients <18 years of ag e have not been validated by th e MDRD study and should be interpreted wit h caution. eGFR R esult Interpretation: eGFR > or = 60 is in the Normal RangeeGF R < 60 may mean kid silva diseaseeGFR < 1 5 may mean kidney failure Rang es recommended by the National Kidney Foundation, http://nkdep.ni h.gov eGFR Non-AA (test >60.00 N eGFR (essence mated code = eGFR Non-AA) mL/min/1.73 m2 Glomer ular Filtration Rate ) is an estimated va lue, calculated from the patient's serum creatinine usin g the MDRD equation. It is NOT the patient 's actual GFR. The eGFR provides a more clinically usef ul measure of kidn ey disease than se rum creatinine alone.This calculation marjan es sex and race in to account, if the information is provided. If th e race is not provided, and t he patient is -Kellie n, multiply by 1.2 12. If sex is not provided, and t he patient is fema le, multiply by 0.7 42. Results for pat ients <18 years of ag e have not been validated by th e MDRD study and should be interpreted wit h caution. eGFR R esult Interpretation: eGFR > or = 60 is in the Normal RangeeGF R < 60 may mean kid silva diseaseeGFR < 1 5 may mean kidney failure Rang es recommended by the National Kidney Foundation, http://nkdep.ni h.gov Creatine Kinase MB [id number] 08:50:24 Test Item Value Reference Range Interpretation Comments CKMB (test code = CKMB) 3.4 ng/mL 0.0-4.9 Creatine Kinase MB [id number] 08:50:24 Test Item Value Reference Range Interpretation Comments CKMB (test code = CKMB) 3.4 ng/mL 0.0-4.9 CKMB % (test code = CKMB %) 8.9 % 0.0-3.4 H Complete Blood Count with [id number] 08:34:36 Test Item Value Reference Range Interpretation Comments WBC (test code = WBC) 17.6 x10 4.4-10.5 H RBC (test code = RBC) 3.96 x10 4.10-5.70 L Hgb (test code = Hgb) 12.1 g/dL 13.4-17.4 L MCV (test code = MCV) 92.40 fL 80.00-100.00 Hct (test code = Hct) 36.6 % 38.7-52.0 L MCHC (test code = 33.10 g/dL 32.00-37.50 MCHC) MCH (test code = MCH) 30.6 pg 27.0-32.5 RDW CV (test code = 16.9 % 11.5-14.5 H RDW CV) Platelets (test code = 191.0 x10 140.0-440.0 Platelets) MPV (test code = MPV) 9.9 fL N Slide Review (test Auto Auto Result cr eated by code = Slide Review) GL_SJM_ SLIDE_REV_AUTO GL_SJM_XN_RFLX nRBC (test code = 1 N nRBC) NRBC Abs (test code = 0.18 x10 N NRBC Abs) Pos Diff XN (test code A N = Pos Diff XN) IPF (test code = IPF) 0 % N Automated [id number] 08:34:36 Test Item Value Reference Range Interpretation Comments Neutro Auto (test code = Neutro 47.5 % 36.0-70.0 Auto) Lymph Auto (test code = Lymph Auto) 38.4 % 12.0-44.0 Hettinger Auto (test code = Hettinger Auto) 8.8 % 0.0-11.0 Eos, Auto (test code = Eos, Auto) 1.2 % 0.0-7.0 Basophil Auto (test code = Basophil 0.4 % 0.0-2.0 Auto) Neutro Absolute (test code = Neutro 8.4 x10 1.6-7.4 H Absolute) Lymph Absolute (test code = Lymph 6.76 x10 .50-4.60 H Absolute) Hettinger Absolute (test code = Hettinger 1.55 x10 .00-1.20 H Absolute) Eos Absolute (test code = Eos 0.21 x10 0.00-0.74 Absolute) Baso Absolute (test code = Baso 0.07 x10 0.00-0.21 Absolute) IG [id number] 08:34:36 Test Item Value Reference Range Interpretation Comments IG (test code = IG) 3.7 % 0.0-5.0 IG Abs (test code = IG Abs) 1 x10 N Blood [id number] 09:01:48No growth at 5 days.Blood [id number] 09:01:41No growth at 5 days.Blood [id number] 09:01:41No growth at 5 days. Renal Function [id number] 08:52:46 Test Item Value Reference Range Interpretation Comments Sodium Level (test code = Sodium 139.0 mmol/L 135.0-145.0 Level) Potassium Level (test code = 4.0 mmol/L 3.5-5.1 Potassium Level) Chloride Level (test code = 100 mmol/L 98-105 Chloride Level) CO2 (test code = CO2) 29 mmol/L 22-29 Anion Gap (test code = Anion 10 mmol/L 7-16 Gap) BUN (test code = BUN) 13.10 mg/dL 8.00-23.00 Creatinine Level (test code = 0.80 mg/dL 0.70-1.20 Creatinine Level) BUN/Creat Ratio (test code = 16 N BUN/Creat Ratio) Glucose Level (test code = 131 mg/dL 70-115 H Glucose Level) Albumin Level (test code = 3.4 g/dL 3.5-5.2 L Albumin Level) Calcium Level (test code = 9.1 mg/dL 8.3-10.5 Calcium Level) Phosphorus Level (test code = 2.90 mg/dL 2.70-4.50 Phosphorus Level) Renal Function [id number] 08:52:46 Test Item Value Reference Range Interpretation Comments Sodium Level (test 139.0 mmol/L 135.0-145.0 code = Sodium Level) Potassium Level 4.0 mmol/L 3.5-5.1 (test code = Potassium Level) Chloride Level (test 100 mmol/L 98-105 code = Chloride Level) CO2 (test code = 29 mmol/L 22-29 CO2) Anion Gap (test code 10 mmol/L 7-16 = Anion Gap) BUN (test code = 13.10 mg/dL 8.00-23.00 BUN) Creatinine Level 0.80 mg/dL 0.70-1.20 (test code = Creatinine Level) BUN/Creat Ratio 16 N (test code = BUN/Creat Ratio) eGFR AA (test code = >60 N eGFR (e stimated eGFR AA) mL/min/1.73 m2 Glomerular Filtration Rate ) is an estimated va lue, calculated from the patient's serum creatinine usin g the MDRD equation. It is NOT the patient 's actual GFR. The eGFR provides a more clinically usef ul measure of kidn ey disease than se rum creatinine alone.This calculation marjan es sex and race in to account, if the information is provided. If th e race is not provided, and t he patient is -Kellie n, multiply by 1.2 12. If sex is not provided, and t he patient is fema le, multiply by 0.7 42. Results for pat ients <18 years of ag e have not been validated by th e MDRD study and should be interpreted wit h caution. eGFR R esult Interpretation: eGFR > or = 60 is in the Normal RangeeGF R < 60 may mean kid silva diseaseeGFR < 1 5 may mean kidney failure Rang es recommended by the National Kidney Foundation, http://nkdep.ni h.gov Glucose Level (test 131 mg/dL 70-115 H code = Glucose Level) Albumin Level (test 3.4 g/dL 3.5-5.2 L code = Albumin Level) Calcium Level (test 9.1 mg/dL 8.3-10.5 code = Calcium Level) Phosphorus Level 2.90 mg/dL 2.70-4.50 (test code = Phosphorus Level) Renal Function [id number] 08:52:46 Test Item Value Reference Range Interpretation Comments Sodium Level (test 139.0 mmol/L 135.0-145.0 code = Sodium Level) Potassium Level 4.0 mmol/L 3.5-5.1 (test code = Potassium Level) Chloride Level (test 100 mmol/L 98-105 code = Chloride Level) CO2 (test code = 29 mmol/L 22-29 CO2) Anion Gap (test code 10 mmol/L 7-16 = Anion Gap) BUN (test code = 13.10 mg/dL 8.00-23.00 BUN) Creatinine Level 0.80 mg/dL 0.70-1.20 (test code = Creatinine Level) BUN/Creat Ratio 16 N (test code = BUN/Creat Ratio) eGFR AA (test code = >60 N eGFR (e stimated eGFR AA) mL/min/1.73 m2 Glomerular Filtration Rate ) is an estimated va lue, calculated from the patient's serum creatinine usin g the MDRD equation. It is NOT the patient 's actual GFR. The eGFR provides a more clinically usef ul measure of kidn ey disease than se rum creatinine alone.This calculation marjan es sex and race in to account, if the information is provided. If th e race is not provided, and t he patient is -Kellie n, multiply by 1.2 12. If sex is not provided, and t he patient is fema le, multiply by 0.7 42. Results for pat ients <18 years of ag e have not been validated by [facility] MDRD study and should be interpreted wit h caution. eGFR R esult Interpretation: eGFR > or = 60 is in the Normal RangeeGF R < 60 may mean kid silva diseaseeGFR < 1 5 may mean kidney failure Rang es recommended by the National Kidney Foundation, http://nkdep.ni h.gov eGFR Non-AA (test >60.00 N eGFR (essence mated code = eGFR Non-AA) mL/min/1.73 m2 Glomer ular Filtration Rate ) is an estimated va lue, calculated from the patient's serum creatinine usin g the MDRD equation. It is NOT the patient 's actual GFR. The eGFR provides a more clinically usef ul measure of kidn ey disease than se rum creatinine alone.This calculation marjan es sex and race in to account, if the information is provided. If [facility] race is not provided, and t he patient is -Kellie n, multiply by 1.2 12. If sex is not provided, and t he patient is fema le, multiply by 0.7 42. Results for pat ients <18 years of ag e have not been validated by [facility] MDRD study and should be interpreted wit h caution. eGFR R esult Interpretation: eGFR > or = 60 is in the Normal RangeeGF R < 60 may mean kid silva diseaseeGFR < 1 5 may mean kidney failure Rang es recommended by the National Kidney Foundation, http://nkdep.ni h.gov Glucose Level (test 131 mg/dL 70-115 H code = Glucose Level) Albumin Level (test 3.4 g/dL 3.5-5.2 L code = Albumin Level) Calcium Level (test 9.1 mg/dL 8.3-10.5 code = Calcium Level) Phosphorus Level 2.90 mg/dL 2.70-4.50 (test code = Phosphorus Level) Magnesium [id number] 08:52:45 Test Item Value Reference Range Interpretation Comments Magnesium Level (test code = 1.8 mg/dL 1.7-2.5 Magnesium Level) Complete Blood Count with [id number] 08:35:15 Test Item Value Reference Range Interpretation Comments WBC (test code = WBC) 15.0 x10 4.4-10.5 H RBC (test code = RBC) 4.00 x10 4.10-5.70 L Hgb (test code = Hgb) 12.3 g/dL 13.4-17.4 L Hct (test code = Hct) 37.3 % 38.7-52.0 L MCV (test code = MCV) 93.30 fL 80.00-100.00 MCHC (test code = 33.00 g/dL 32.00-37.50 MCHC) RDW CV (test code = 16.5 % 11.5-14.5 H RDW CV) MCH (test code = MCH) 30.8 pg 27.0-32.5 Platelets (test code = 195.0 x10 140.0-440.0 Platelets) MPV (test code = MPV) 9.4 fL N Slide Review (test Auto Auto Result cr eated by code = Slide Review) GL_SJM_ SLIDE_REV_AUTO nRBC (test code = 0 N nRBC) NRBC Abs (test code = 0.05 x10 N NRBC Abs) IPF (test code = IPF) 0 % N Automated [id number] 08:35:15 Test Item Value Reference Range Interpretation Comments Neutro Auto (test code = Neutro 60.0 % 36.0-70.0 Auto) Lymph Auto (test code = Lymph Auto) 30.2 % 12.0-44.0 Hettinger Auto (test code = Hettinger Auto) 7.9 % 0.0-11.0 Eos, Auto (test code = Eos, Auto) 0.7 % 0.0-7.0 Basophil Auto (test code = Basophil 0.4 % 0.0-2.0 Auto) Neutro Absolute (test code = Neutro 9.0 x10 1.6-7.4 H Absolute) Lymph Absolute (test code = Lymph 4.54 x10 .50-4.60 Absolute) Hettinger Absolute (test code = Hettinger 1.19 x10 .00-1.20 Absolute) Eos Absolute (test code = Eos 0.10 x10 0.00-0.74 Absolute) Baso Absolute (test code = Baso 0.06 x10 0.00-0.21 Absolute) IG [id number] 08:35:15 Test Item Value Reference Range Interpretation Comments IG (test code = IG) 0.8 % 0.0-5.0 IG Abs (test code = IG Abs) 0 x10 N Creatine [id number] 07:30:46 Test Item Value Reference Range Interpretation Comments CK (test code = CK) 51 U/L 39-308 Creatine Kinase MB [id number] 07:30:46 Test Item Value Reference Range Interpretation Comments CKMB (test code = CKMB) 5.4 ng/mL 0.0-4.9 H CKMB % (test code = CKMB %) 10.6 % 0.0-3.4 H Renal Function [id number] 07:30:46 Test Item Value Reference Range Interpretation Comments eGFR AA (test >60 mL/min/1.73 N eGFR (estim ated code = eGFR AA) m2 Glomerular F iltration Rate) is an est imated value, calculat ed from the patient's s william creatinine usin g the MDRD equation. It is NOT the patient 's actual GFR. The eGFR provides a more clinically usef ul measure of kidn ey disease than se rum creatinine alone.This calculation marjan es sex and race into a ccount, if the informat ion is provided. If th e race is not provided , and the patient is -Kellie n, multiply by 1.2 12. If sex is not prov ided, and the patient is female, multipl y by 0.742. Results for patients <18 ye ars of age have not be en validated by th e MDRD study and shoul d be interpreted wit h caution. eGFR R esult Interpretation: eGFR > or = 60 is in t he Normal RangeeGF R < 60 may mean kidney diseaseeGFR < 1 5 may mean kidney alek lure Ranges recommen ded by the National Ki dney Foundation, http://nkdep.ni h.gov eGFR Non-AA >60.00 N eGFR (estimated (test code = mL/min/1.73 m2 Glomerular Fi ltration eGFR Non-AA) Rate) is an est imated value, calculat ed from the patient's s william creatinine usin g the MDRD equation. It is NOT the patient 's actual GFR. The eGFR provides a more clinically usef ul measure of kidn ey disease than se rum creatinine alone.This calculation marjan es sex and race into a ccount, if the informat ion is provided. If th e race is not provided , and the patient is -Kellie n, multiply by 1.2 12. If sex is not prov ided, and the patient is female, multipl y by 0.742. Results for patients <18 ye ars of age have not be en validated by th e MDRD study and shoul d be interpreted wit h caution. eGFR R esult Interpretation: eGFR > or = 60 is in t he Normal RangeeGF R < 60 may mean kidney diseaseeGFR < 1 5 may mean kidney alek lure Ranges recommen ded by the National Ki ey Foundation, http://nkdep. h.gov Magnesium [id number] 07:30:46 Test Item Value Reference Range Interpretation Comments Magnesium Level (test code = 1.7 mg/dL 1.7-2.5 Magnesium Level) Renal Function [id number] 07:30:46 Test Item Value Reference Range Interpretation Comments Sodium Level (test 140.0 mmol/L 135.0-145.0 code = Sodium Level) Potassium Level 3.7 mmol/L 3.5-5.1 (test code = Potassium Level) Chloride Level (test 102 mmol/L 98-105 code = Chloride Level) CO2 (test code = 26 mmol/L 22-29 CO2) Anion Gap (test code 12 mmol/L 7-16 = Anion Gap) BUN (test code = 12.00 mg/dL 8.00-23.00 BUN) Creatinine Level 0.90 mg/dL 0.70-1.20 (test code = Creatinine Level) BUN/Creat Ratio 13 N (test code = BUN/Creat Ratio) eGFR AA (test code = >60 N eGFR (e stimated eGFR AA) mL/min/1.73 m2 Glomerular Filtration Rate ) is an estimated va lue, calculated from the patient's serum creatinine usin g the MDRD equation. It is NOT the patient 's actual GFR. The eGFR provides a more clinically usef ul measure of kidn ey disease than se rum creatinine alone.This calculation marjan es sex and race in to account, if the information is provided. If th e race is not provided, and t he patient is -Kellie n, multiply by 1.2 12. If sex is not provided, and t he patient is fema le, multiply by 0.7 42. Results for pat ients <18 years of ag e have not been validated by [facility] MDRD study and should be interpreted wit h caution. eGFR R esult Interpretation: eGFR > or = 60 is in the Normal RangeeGF R < 60 may mean kid silva diseaseeGFR < 1 5 may mean kidney failure Rang es recommended by the National Kidney Foundation, http://nkdep.ni h.gov eGFR Non-AA (test >60.00 N eGFR (essence mated code = eGFR Non-AA) mL/min/1.73 m2 Glomer ular Filtration Rate ) is an estimated va lue, calculated from the patient's serum creatinine usin g the MDRD equation. It is NOT the patient 's actual GFR. The eGFR provides a more clinically usef ul measure of kidn ey disease than se rum creatinine alone.This calculation marjan es sex and race in to account, if the information is provided. If th e race is not provided, and t he patient is -Kellie n, multiply by 1.2 12. If sex is not provided, and t he patient is fema le, multiply by 0.7 42. Results for pat ients <18 years of ag e have not been validated by [facility] MDRD study and should be interpreted wit h caution. eGFR R esult Interpretation: eGFR > or = 60 is in the Normal RangeeGF R < 60 may mean kid silva diseaseeGFR < 1 5 may mean kidney failure Rang es recommended by the National Kidney Foundation, http://nkdep.ni h.gov Glucose Level (test 122 mg/dL 70-115 H code = Glucose Level) Albumin Level (test 3.4 g/dL 3.5-5.2 L code = Albumin Level) Calcium Level (test 9.3 mg/dL 8.3-10.5 code = Calcium Level) Phosphorus Level 2.80 mg/dL 2.70-4.50 (test code = Phosphorus Level) Renal Function [id number] 07:30:46 Test Item Value Reference Range Interpretation Comments Sodium Level (test 140.0 mmol/L 135.0-145.0 code = Sodium Level) Potassium Level 3.7 mmol/L 3.5-5.1 (test code = Potassium Level) Chloride Level (test 102 mmol/L 98-105 code = Chloride Level) CO2 (test code = 26 mmol/L 22-29 CO2) Anion Gap (test code 12 mmol/L 7-16 = Anion Gap) BUN (test code = 12.00 mg/dL 8.00-23.00 BUN) Creatinine Level 0.90 mg/dL 0.70-1.20 (test code = Creatinine Level) BUN/Creat Ratio 13 N (test code = BUN/Creat Ratio) eGFR AA (test code = >60 N eGFR (e stimated eGFR AA) mL/min/1.73 m2 Glomerular Filtration Rate ) is an estimated va lue, calculated from the patient's serum creatinine usin g the MDRD equation. It is NOT the patient 's actual GFR. The eGFR provides a more clinically usef ul measure of kidn ey disease than se rum creatinine alone.This calculation marjan es sex and race in to account, if the information is provided. If th e race is not provided, and t he patient is -Kellie n, multiply by 1.2 12. If sex is not provided, and t he patient is fema le, multiply by 0.7 42. Results for pat ients <18 years of ag e have not been validated by th e MDRD study and should be interpreted wit h caution. eGFR R esult Interpretation: eGFR > or = 60 is in the Normal RangeeGF R < 60 may mean kid silva diseaseeGFR < 1 5 may mean kidney failure Rang es recommended by the National Kidney Foundation, http://nkdep.ni h.gov eGFR Non-AA (test >60.00 N eGFR (essence mated code = eGFR Non-AA) mL/min/1.73 m2 Glomer ular Filtration Rate ) is an estimated va lue, calculated from the patient's serum creatinine usin g the MDRD equation. It is NOT the patient 's actual GFR. The eGFR provides a more clinically usef ul measure of kidn ey disease than se rum creatinine alone.This calculation marjan es sex and race in to account, if the information is provided. If th e race is not provided, and t he patient is -Kellie n, multiply by 1.2 12. If sex is not provided, and t he patient is fema le, multiply by 0.7 42. Results for pat ients <18 years of ag e have not been validated by e MDRD study and should be interpreted wit h caution. eGFR R esult Interpretation: eGFR > or = 60 is in the Normal RangeeGF R < 60 may mean kid silva diseaseeGFR < 1 5 may mean kidney failure Rang es recommended by the National Kidney Foundation, http://nkdep.ni h.gov Glucose Level (test 122 mg/dL 70-115 H code = Glucose Level) Albumin Level (test 3.4 g/dL 3.5-5.2 L code = Albumin Level) Calcium Level (test 9.3 mg/dL 8.3-10.5 code = Calcium Level) Phosphorus Level 2.80 mg/dL 2.70-4.50 (test code = Phosphorus Level) Pro B Natriuretic [id number] 07:30:46 Test Item Value Reference Range Interpretation Comments NT-proBNP (test code = NT-proBNP) 338 pg/mL 0-124 H Complete Blood Count with [id number] 07:14:33 Test Item Value Reference Range Interpretation Comments WBC (test code = WBC) 13.9 x10 4.4-10.5 H RBC (test code = RBC) 3.89 x10 4.10-5.70 L Hgb (test code = Hgb) 11.8 g/dL 13.4-17.4 L Hct (test code = Hct) 36.3 % 38.7-52.0 L MCV (test code = MCV) 93.30 fL 80.00-100.00 MCHC (test code = 32.50 g/dL 32.00-37.50 MCHC) RDW CV (test code = 16.3 % 11.5-14.5 H RDW CV) MCH (test code = MCH) 30.3 pg 27.0-32.5 Platelets (test code = 187.0 x10 140.0-440.0 Platelets) MPV (test code = MPV) 8.9 fL N Slide Review (test Auto Auto Result cr eated by code = Slide Review) GL_SJM_ SLIDE_REV_AUTO nRBC (test code = 0 N nRBC) NRBC Abs (test code = 0.03 x10 N NRBC Abs) IPF (test code = IPF) 0 % N Automated [id number] 07:14:33 Test Item Value Reference Range Interpretation Comments Neutro Auto (test code = Neutro 61.6 % 36.0-70.0 Auto) Lymph Auto (test code = Lymph Auto) 29.3 % 12.0-44.0 Hettinger Auto (test code = Hettinger Auto) 7.8 % 0.0-11.0 Eos, Auto (test code = Eos, Auto) 0.4 % 0.0-7.0 Basophil Auto (test code = Basophil 0.3 % 0.0-2.0 Auto) Neutro Absolute (test code = Neutro 8.6 x10 1.6-7.4 H Absolute) Lymph Absolute (test code = Lymph 4.06 x10 .50-4.60 Absolute) Hettinger Absolute (test code = Hettinger 1.08 x10 .00-1.20 Absolute) Eos Absolute (test code = Eos 0.05 x10 0.00-0.74 Absolute) Baso Absolute (test code = Baso 0.04 x10 0.00-0.21 Absolute) IG [id number] 07:14:33 Test Item Value Reference Range Interpretation Comments IG (test code = IG) 0.6 % 0.0-5.0 IG Abs (test code = IG Abs) 0 x10 N Respiratory Culture w/ Gram [id number] 08:31:12 Test Item Value Reference Range Interpretation Comments ORGANISM (test code = Enterobacter cloacae ORGANISM) Amikacin (test code = S Amik) Ampicillin (test code = R Amp) Ampicillin/Sulbactam R (test code = Amp/Sul) Cefazolin (test code = R Cefaz) Cefepime (test code = S Cefep) Cefotaxime (test code = S Cefo) Ceftazidime (test code S = Ceftaz) Ceftriaxone (test code S = Ceftri) Cefuroxime (test code = R Cefur) Ciprofloxacin (test S code = Cipro) Gentamicin (test code = S Gent) Imipenem (test code = S Imi) Levofloxacin (test code S = Levo) Meropenem (test code = S Dylan) Piperacillin/Tazobactam S (test code = Pip/Inderjit) Tobramycin (test code = S Tobra) Trimethoprim/Sulfa S (test code = SXT) Final Report (test code Many Enterobacter = Final Report) cloacae Gram Stain Report (test Many Gram Negative code = Gram Stain Bacilli Few White Report) Blood Cells Few epithelial cells Blood [id number] 09:01:11No growth at 5 days.Urine [id number] 06:17:24 Test Item Value Reference Range Interpretation Comments ORGANISM (test code = Enterobacter cloacae ORGANISM) Amikacin (test code = S Amik) Ampicillin (test code = R Amp) Ampicillin/Sulbactam R (test code = Amp/Sul) Cefazolin (test code = R Cefaz) Cefepime (test code = S Cefep) Cefotaxime (test code = S Cefo) Ceftazidime (test code = S Ceftaz) Ceftriaxone (test code = S Ceftri) Cefuroxime (test code = R Cefur) Ciprofloxacin (test code S = Cipro) Gentamicin (test code = S Gent) Imipenem (test code = I Imi) Levofloxacin (test code S = Levo) Meropenem (test code = S Dylan) Nitrofurantoin (test R code = Nitro) Piperacillin/Tazobactam S (test code = Pip/Inderjit) Tobramycin (test code = S Tobra) Trimethoprim/Sulfa (test S code = SXT) Final Report (test code >=100,000 cfu/ml = Final Report) Enterobacter cloacae Wound Culture w/ Gram [id number] 08:05:39 Test Item Value Reference Range Interpretation Comments ORGANISM (test code = Enterococcus group D ORGANISM) Ampicillin (test code S = Amp) Ciprofloxacin (test S code = Cipro) Gentamicin synergy S (test code = Gent-Syn) Levofloxacin (test S code = Levo) Linezolid (test code = S Linez) Penicillin (test code S = Pen) Streptomycin synergy S (test code = Strep-Syn) Tetracycline (test R code = Tetra) Vancomycin (test code S = Vanc) Final Report (test From broth only code = Final Report) Enterococcus group D Few Coagulase Negative Staphylococcus No Anaerobes Isolated at 3 Days Gram Stain Report No organisms seen. No (test code = Gram White Blood Cells Stain Report) Antinuclear Antibody Screen, [id number] 10:47:25 Test Item Value Reference Range Interpretation Comments NAYAN Direct (test code = NAYAN Direct) Negative Negative Pos Control (test code = Pos Positive Control) Neg Control (test code = Neg Negative Control) Lot # (test code = Lot #) [id number] Expiration Dt (test code = 06-10-2019 N Expiration Dt) Angiotensin-Converting [id number] 10:11:1349Performed At: [facility] [address] [id number] Sanjai MD Ph:80 [phone] Culture w/ Gram [id number] 11:53:28 Test Item Value Reference Range Interpretation Comments Final Report (test Few Staphylococcus aureus code = Final For sensitivity refer to Report) accession number: [id number] (sputum culture of 12/16/18) Normal liya at 48 hours Gram Stain Report Moderate Gram Positive (test code = Gram Cocci in Pairs and in Stain Report) Chains Few White Blood Cells Rare epithelial cells Hemoglobin [id number] 08:20:59 Test Item Value Reference Range Interpretation Comments Hemoglobin A1c (test code 7.6 % 4.8-5.9 H No n Diabetic = Hemoglobin A1c) 4.8-5.9%Di abetic <7.0% Magnesium [id number] 07:49:36 Test Item Value Reference Range Interpretation Comments Magnesium Level (test code = 1.7 mg/dL 1.7-2.5 Magnesium Level) Phosphorus [id number] 07:49:36 Test Item Value Reference Range Interpretation Comments Phosphorus Level (test code = 4.50 mg/dL 2.70-4.50 Phosphorus Level) Acetaminophen [id number] 07:49:36 Test Item Value Reference Range Interpretation Comments Acetaminophen Level (test code <15.0 ug/mL(g) 15.0-30.0 = Acetaminophen Level) Comprehensive Metabolic [id number] 07:49:35 Test Item Value Reference Range Interpretation Comments Sodium Level (test code = Sodium 139.0 mmol/L 135.0-145.0 Level) Potassium Level (test code = 4.0 mmol/L 3.5-5.1 Potassium Level) Chloride Level (test code = 98 mmol/L 98-105 Chloride Level) CO2 (test code = CO2) 29 mmol/L 22-29 Anion Gap (test code = Anion 12 mmol/L 7-16 Gap) BUN (test code = BUN) 13.70 mg/dL 8.00-23.00 Creatinine Level (test code = 0.90 mg/dL 0.70-1.20 Creatinine Level) BUN/Creat Ratio (test code = 15 N BUN/Creat Ratio) Glucose Level (test code = 192 mg/dL 70-115 H Glucose Level) Calcium Level (test code = 9.1 mg/dL 8.3-10.5 Calcium Level) Alk Phos (test code = Alk Phos) 65 U/L 40-129 Bilirubin Total (test code = 0.3 mg/dL 0.1-0.9 Bilirubin Total) Albumin Level (test code = 3.1 g/dL 3.5-5.2 L Albumin Level) Protein Total (test code = 5.4 g/dL 6.4-8.3 L Protein Total) ALT (test code = ALT) 18 U/L 1-41 AST (test code = AST) 25 U/L 1-40 N Globulin (test code = Globulin) 2.3 g/dL 2.9-3.1 L A/G Ratio (test code = A/G 1.3 ratio N Ratio) Comprehensive Metabolic [id number] 07:49:35 Test Item Value Reference Range Interpretation Comments Sodium Level (test 139.0 mmol/L 135.0-145.0 code = Sodium Level) Potassium Level 4.0 mmol/L 3.5-5.1 (test code = Potassium Level) Chloride Level (test 98 mmol/L 98-105 code = Chloride Level) CO2 (test code = 29 mmol/L 22-29 CO2) Anion Gap (test code 12 mmol/L 7-16 = Anion Gap) BUN (test code = 13.70 mg/dL 8.00-23.00 BUN) Creatinine Level 0.90 mg/dL 0.70-1.20 (test code = Creatinine Level) BUN/Creat Ratio 15 N (test code = BUN/Creat Ratio) Glucose Level (test 192 mg/dL 70-115 H code = Glucose Level) Calcium Level (test 9.1 mg/dL 8.3-10.5 code = Calcium Level) Alk Phos (test code 65 U/L 40-129 = Alk Phos) Bilirubin Total 0.3 mg/dL 0.1-0.9 (test code = Bilirubin Total) Albumin Level (test 3.1 g/dL 3.5-5.2 L code = Albumin Level) Protein Total (test 5.4 g/dL 6.4-8.3 L code = Protein Total) ALT (test code = 18 U/L 1-41 ALT) AST (test code = 25 U/L 1-40 N AST) Globulin (test code 2.3 g/dL 2.9-3.1 L = Globulin) A/G Ratio (test code 1.3 ratio N = A/G Ratio) eGFR AA (test code = >60 N eGFR (e stimated eGFR AA) mL/min/1.73 m2 Glomerular Filtration Rate ) is an estimated va lue, calculated from the patient's serum creatinine usin g the MDRD equation. It is NOT the patient 's actual GFR. The eGFR provides a more clinically usef ul measure of kidn ey disease than se rum creatinine alone.This calculation marjan es sex and race in to account, if the information is provided. If th e race is not provided, and t he patient is -Kellie n, multiply by 1.2 12. If sex is not provided, and t he patient is fema le, multiply by 0.7 42. Results for pat ients <18 years of ag e have not been validated by th e MDRD study and should be interpreted wit h caution. eGFR R esult Interpretation: eGFR > or = 60 is in the Normal RangeeGF R < 60 may mean kid silva diseaseeGFR < 1 5 may mean kidney failure Rang es recommended by the National Kidney Foundation, http://nkdep.ni h.gov Comprehensive Metabolic [id number] 07:49:35 Test Item Value Reference Range Interpretation Comments Sodium Level (test 139.0 mmol/L 135.0-145.0 code = Sodium Level) Potassium Level 4.0 mmol/L 3.5-5.1 (test code = Potassium Level) Chloride Level (test 98 mmol/L 98-105 code = Chloride Level) CO2 (test code = 29 mmol/L 22-29 CO2) Anion Gap (test code 12 mmol/L 7-16 = Anion Gap) BUN (test code = 13.70 mg/dL 8.00-23.00 BUN) Creatinine Level 0.90 mg/dL 0.70-1.20 (test code = Creatinine Level) BUN/Creat Ratio 15 N (test code = BUN/Creat Ratio) Glucose Level (test 192 mg/dL 70-115 H code = Glucose Level) Calcium Level (test 9.1 mg/dL 8.3-10.5 code = Calcium Level) Alk Phos (test code 65 U/L 40-129 = Alk Phos) Bilirubin Total 0.3 mg/dL 0.1-0.9 (test code = Bilirubin Total) Albumin Level (test 3.1 g/dL 3.5-5.2 L code = Albumin Level) Protein Total (test 5.4 g/dL 6.4-8.3 L code = Protein Total) ALT (test code = 18 U/L 1-41 ALT) AST (test code = 25 U/L 1-40 N AST) Globulin (test code 2.3 g/dL 2.9-3.1 L = Globulin) A/G Ratio (test code 1.3 ratio N = A/G Ratio) eGFR AA (test code = >60 N eGFR (e stimated eGFR AA) mL/min/1.73 m2 Glomerular Filtration Rate ) is an estimated va lue, calculated from the patient's serum creatinine usin g the MDRD equation. It is NOT the patient 's actual GFR. The eGFR provides a more clinically usef ul measure of kidn ey disease than se rum creatinine alone.This calculation marjan es sex and race in to account, if the information is provided. If th e race is not provided, and t he patient is -Kellie n, multiply by 1.2 12. If sex is not provided, and t he patient is fema le, multiply by 0.7 42. Results for pat ients <18 years of ag e have not been validated by th e MDRD study and should be interpreted wit h caution. eGFR R esult Interpretation: eGFR > or = 60 is in the Normal RangeeGF R < 60 may mean kid silva diseaseeGFR < 1 5 may mean kidney failure Rang es recommended by the National Kidney Foundation, http://nkdep.ni h.gov eGFR Non-AA (test >60.00 N eGFR (essence mated code = eGFR Non-AA) mL/min/1.73 m2 Glomer ular Filtration Rate ) is an estimated va lue, calculated from the patient's serum creatinine usin g the MDRD equation. It is NOT the patient 's actual GFR. The eGFR provides a more clinically usef ul measure of kidn ey disease than se rum creatinine alone.This calculation marjan es sex and race in to account, if the information is provided. If th e race is not provided, and t he patient is -Kellie n, multiply by 1.2 12. If sex is not provided, and t he patient is fema le, multiply by 0.7 42. Results for pat ients <18 years of ag e have not been validated by th e MDRD study and should be interpreted wit h caution. eGFR R esult Interpretation: eGFR > or = 60 is in the Normal RangeeGF R < 60 may mean kid silva diseaseeGFR < 1 5 may mean kidney failure Rang es recommended by the National Kidney Foundation, http://nkdep.ni h.gov Complete Blood Count with [id number] 07:40:13 Test Item Value Reference Range Interpretation Comments WBC (test code = WBC) 16.9 x10 4.4-10.5 H RBC (test code = RBC) 3.79 x10 4.10-5.70 L Hgb (test code = Hgb) 11.5 g/dL 13.4-17.4 L MCV (test code = MCV) 93.40 fL 80.00-100.00 Hct (test code = Hct) 35.4 % 38.7-52.0 L MCHC (test code = 32.50 g/dL 32.00-37.50 MCHC) RDW CV (test code = 16.2 % 11.5-14.5 H RDW CV) MCH (test code = MCH) 30.3 pg 27.0-32.5 Platelets (test code = 241.0 x10 140.0-440.0 Platelets) MPV (test code = MPV) 10.2 fL N Slide Review (test Auto Auto Result cr eated by code = Slide Review) GL_SJM_ SLIDE_REV_AUTO nRBC (test code = 0 N nRBC) NRBC Abs (test code = 0.00 x10 N NRBC Abs) IPF (test code = IPF) 0 % N Automated [id number] 07:40:13 Test Item Value Reference Range Interpretation Comments Neutro Auto (test code = Neutro 60.6 % 36.0-70.0 Auto) Lymph Auto (test code = Lymph Auto) 28.1 % 12.0-44.0 Hettinger Auto (test code = Hettinger Auto) 6.7 % 0.0-11.0 Eos, Auto (test code = Eos, Auto) 2.8 % 0.0-7.0 Basophil Auto (test code = Basophil 0.3 % 0.0-2.0 Auto) Neutro Absolute (test code = Neutro 10.2 x10 1.6-7.4 H Absolute) Lymph Absolute (test code = Lymph 4.75 x10 .50-4.60 H Absolute) Hettinger Absolute (test code = Hettinger 1.13 x10 .00-1.20 Absolute) Eos Absolute (test code = Eos 0.47 x10 0.00-0.74 Absolute) Baso Absolute (test code = Baso 0.05 x10 0.00-0.21 Absolute) IG [id number] 07:40:13 Test Item Value Reference Range Interpretation Comments IG (test code = IG) 1.5 % 0.0-5.0 IG Abs (test code = IG Abs) 0 x10 N
[2021-11-03] MEDS ORDERED: METHYLPREDNISOLONE 125 MG INJ ONE (23:39)
[2021-11-03] MEDS ORDERED: KETOROLAC 30 MG/ML INJ ONE (23:39)
--- NOTE | 2021-11-04 00:32 | EDPHYS ---
Physician Documentation [facility] Name: Ronald Lino Age: 71 yrs Sex: Male : 1950 Arrival Date: 11/03/2021 Time: 21:36 Bed DIS2 Private MD: ED Physician Elie Canada HPI: 11/04 00:14 This 71 yrs old Black Male presents to ER via Ambulatory with complaints of H/O RA, kdr pain in LT Hand/Wrist. 00:14 The patient or guardian reports decreased range of motion, pain, tenderness. The kdr complaints affect the left wrist diffusely. Context: The problem was sustained at home, resulted from Patient states that when they wean him off his steroids, his rheumatoid arthritis always flares.. Onset: The symptoms/episode began/occurred gradually, 2 day(s) ago. Modifying factors: The symptoms are alleviated by nothing, the symptoms are aggravated by movement. Associated signs and symptoms: The patient has no apparent associated signs or symptoms. Compartment Syndrome negative for numbness, tingling. The patient has experienced similar episodes in the past. The patient has not recently seen a physician. Historical: - Allergies: 11/03 22:10 PENICILLINS; bh1 - PMHx: 22:10 Atrial fibrillation; diabetes mellitus; RA; bh1 - PSHx: 22:10 knee; bh1 - Immunization history:: Adult Immunizations up to date. - Social history:: Smoking status: Patient denies any tobacco usage or history of. ROS: 11/04 00:14 Constitutional: Negative for fever, chills, and weight loss, Eyes: Negative for injury, kdr pain, redness, and discharge, ENT: Negative for injury, pain, and discharge, Neck: Negative for injury, pain, and swelling, Cardiovascular: Negative for chest pain, palpitations, and edema, Respiratory: Negative for shortness of breath, cough, wheezing, and pleuritic chest pain, Abdomen/GI: Negative for abdominal pain, nausea, vomiting, diarrhea, and constipation, Back: Negative for injury and pain, : Negative for injury, bleeding, discharge, and swelling, Skin: Negative for injury, rash, and discoloration, Neuro: Negative for headache, weakness, numbness, tingling, and seizure activity. Psych: Negative for depression, anxiety, suicide ideation, homicidal ideation, and hallucinations, Allergy/Immunology: Negative for hives, rash, and allergies, Endocrine: Negative for neck swelling, polydipsia, polyuria, polyphagia, and marked weight changes, Hematologic/Lymphatic: Negative for swollen nodes, abnormal bleeding, and unusual bruising. MS/extremity: Positive for decreased range of motion, pain, tenderness, Negative for bite, swelling, warmth. Exam: 00:14 Constitutional: This is a well developed, well nourished patient who is awake, alert, kdr and in no acute distress. Head/Face: Normocephalic, atraumatic. 00:14 Musculoskeletal/extremity: Extremities: grossly normal except: noted in the left wrist and left hand: pain, tenderness. Vital Signs: 11/03 22:08 BP 130 / 85; Pulse 92; Resp 18; Temp 97.7(TE); Pulse Ox 98% on R/A; Weight 114.31 kg; 1 Height 5 ft. 11 in. (180.34 cm); Pain 9/10; 22:08 Body Mass Index 35.15 (114.31 kg, 180.34 cm) [facility] MDM: 11/04 00:14 Data reviewed: vital signs, nurses notes. Counseling: I had a detailed discussion with kdr the patient and/or guardian regarding: the historical points, exam findings, and any diagnostic results supporting the discharge/admit diagnosis, the need for outpatient follow up. 00:30 Patient medically screened. kdr Administered Medications: 11/03 23:40 Drug: SOLU-Medrol (methylPrednisoLONE) 125 mg Route: IVP; Site: right hand; [facility] 23:41 Follow up: Response: No adverse reaction [facility] 23:41 Drug: Ketorolac 15 mg Route: IVP; Site: right hand; [facility] 23:41 Follow up: Response: No adverse reaction [facility] Disposition Summary: 11/04/21 00:30 Discharge Ordered Location: Home kdr Problem: new kdr Symptoms: have improved kdr Condition: Stable kdr Diagnosis - Rheumatoid arthritis, unspecified - left hand/wrist kdr Followup: kdr - With: Private Physician - When: 2 - 3 days - Reason: If symptoms return, Further diagnostic work-up, Recheck today's complaints, Continuance of care, Re-evaluation by your physician Discharge Instructions: - Discharge Summary Sheet kdr - Arthritis kdr - Rheumatoid Arthritis, [id number]-hk-Nwea kdr Forms: - Medication Reconciliation Form kdr - Thank You Letter kdr - Prescription Opioid Use kdr Prescriptions: - Methylprednisolone 4 mg Oral Tablet - take 1 tablet by ORAL route once daily with food; 20 tablet; Refills: 0, kdr Product Selection Permitted - Tylenol-Codeine #3 300 mg-30 mg Oral - take 1 tablet by ORAL route every 4-6 hours As needed; 16 tablet; Refills: 0, kdr Product Selection Permitted Signatures: Elie Canada MD MD kdr Ruby Mascorro RN RN [facility]
--- NOTE | 2021-11-04 00:32 | ER ---
Nurse's Notes [facility] Name: Ronald Lino Age: 71 yrs Sex: Male : 1950 Arrival Date: 11/03/2021 Time: 21:36 Bed DIS2 Private MD: Diagnosis: Rheumatoid arthritis, unspecified-left hand/wrist Presentation: 11/03 22:08 Chief complaint: Patient states: HISTORY OF RA AND EVERY TIME THEY DECREASE MY bh1 PREDNISONE IT FLARES UP REAL BAD, PAIN IN LEFT HAND AND HE IS AFRAID IT WILL MOVE TO RIGHT BY IN THE MORNING. Coronavirus screen: Vaccine status: Patient reports receiving the 2nd dose of the covid vaccine. At this time, the client does not indicate any symptoms associated with coronavirus-19. Ebola Screen: Patient negative for fever greater than or equal to 101.5 degrees Fahrenheit, and additional compatible Ebola Virus Disease symptoms. 22:08 Method Of Arrival: Ambulatory [facility] 22:15 Initial Sepsis Screen: Does the patient meet any 2 criteria? No. Patient's initial [facility] sepsis screen is negative. Does the patient have a suspected source of infection? No. Patient's initial sepsis screen is negative. Risk Assessment: Do you want to hurt yourself or someone else? Patient reports no desire to harm self or others. Onset of symptoms was November 03, 2021. 22:15 Acuity: LILA 4 [facility] Triage Assessment: 22:10 General: Appears in no apparent distress. Behavior is calm, cooperative, appropriate [facility] for age. Pain: Complains of pain in left hand. Historical: - Allergies: 22:10 PENICILLINS; 1 - PMHx: 22:10 Atrial fibrillation; diabetes mellitus; RA; [facility] - PSHx: 22:10 knee; 1 - Immunization history:: Adult Immunizations up to date. - Social history:: Smoking status: Patient denies any tobacco usage or history of. Screenin:44 Abuse screen: Denies threats or abuse. Nutritional screening: No deficits noted. [facility] Tuberculosis screening: No symptoms or risk factors identified. Fall Risk None identified. Assessment: 23:44 Reassessment: No changes from previously documented assessment. [facility] Vital Signs: 22:08 BP 130 / 85; Pulse 92; Resp 18; Temp 97.7(TE); Pulse Ox 98% on R/A; Weight 114.31 kg; 1 Height 5 ft. 11 in. (180.34 cm); Pain 9/10; 22:08 Body Mass Index 35.15 (114.31 kg, 180.34 cm) [facility] ED Course: 21:36 Patient arrived in ED. j6 22:05 Elie Canada MD is Attending Physician. kdr 22:10 Arm band placed on right wrist. [facility] 22:15 Triage completed. [facility] 23:41 No provider procedures requiring assistance completed. Inserted saline lock: 20 gauge [facility] in right hand, using aseptic technique. 23:44 Ruby Mascorro, RN is Primary Nurse. [facility] 23:44 No apparent distress. Resting quietly. Awaiting disposition. [facility] 23:44 Patient has correct armband on for positive identification. [facility] 11/04 00:41 IV discontinued, intact, bleeding controlled, No redness/swelling at site. [facility] Administered Medications: 11/03 23:40 Drug: SOLU-Medrol (methylPrednisoLONE) 125 mg Route: IVP; Site: right hand; [facility] 23:41 Follow up: Response: No adverse reaction [facility] 23:41 Drug: Ketorolac 15 mg Route: IVP; Site: right hand; [facility] 23:41 Follow up: Response: No adverse reaction [facility] Medication: 23:44 VIS not applicable for this client. [facility] Outcome: 11/04 00:30 Discharge ordered by . [facility] 00:41 Discharged to home ambulatory. [facility] 00:41 Condition: good 00:41 Discharge instructions given to patient, Instructed on discharge instructions, follow up and referral plans. medication usage, Demonstrated understanding of instructions, follow-up care, medications, Prescriptions given X 2. 00:42 Patient left the ED. [facility] Signatures: Elie Canada MD MD [facility] Yara Hernandez [facility] Ruby Mascorro, RN RN [facility]
[2021-11-04 01:11] VITALS: BP 130/85; TEMP 97.7; O2SAT 98
== END 2021-11-04 00:42 | disposition home or self-care (01) ==
LOC: ER 21:31
DX: M06.9 Rheumatoid arthritis, unspecified (principal)
CPT/HCPCS: 96374; 96375; 99283; J2930

== ENCOUNTER 2022-05-16 00:58 | Emergency (ER) | payer OTHER ==
--- NOTE | 2022-05-16 01:21 | EDPHYS ---
Physician Documentation [facility] Name: Ronald Lino Age: 71 yrs Sex: Male : 1950 Arrival Date: 05/16/2022 Time: 01:04 Bed IW1 Private MD: ED Physician Abraham Aranda HPI: 05/16 01:18 This 71 yrs old Black Male presents to ER via Unassigned with complaints of General jr11 Weakness, Chills. 01:18 Patient is a 61-year-old that felt some chills when he woke up this morning, just felt jr11 "real cold". Patient feeling better now, wants to get checked out because he is bearing his brother in the next few days. Denies any complaints denies cardiac. No runny nose no congestion no shortness of breath no abdominal pain no urinary complaints.. Historical: - Allergies: 01:22 PENICILLINS; pf1 - PMHx: 01:22 Atrial fibrillation; diabetes mellitus; RA; pf1 - PSHx: 01:15 knee; pf1 - Immunization history:: Client reports receiving the 2nd dose of the Covid vaccine, Last tetanus immunization: < 10 years ago Pneumococcal vaccine is up to date, Flu vaccine is up to date. - Social history:: Smoking status: Patient denies any tobacco usage or history of. Patient/guardian denies using alcohol, street drugs. ROS: 01:18 All other systems are negative. jr11 Exam: 01:18 Constitutional: This is a well developed, well nourished patient who is awake, alert, jr11 and in no acute distress. Head/Face: Normocephalic, atraumatic. Eyes: Extra-ocular motions intact. Lids and lashes normal. Conjunctiva and sclera are non-icteric and not injected. Cornea within normal limits. Periorbital areas with no swelling, redness, or edema. ENT: Nares patent. No nasal discharge, no septal abnormalities noted. Oropharynx with no redness, swelling, or masses, exudates, or evidence of obstruction, uvula midline. Mucous membranes moist. Neck: Trachea midline, no thyromegaly or masses palpated, and no cervical lymphadenopathy. Supple, full range of motion without nuchal rigidity, or vertebral point tenderness. No Meningismus. Chest/axilla: Normal chest wall appearance and motion. Nontender with no deformity. No lesions are appreciated. Cardiovascular: Regular rate and rhythm with a normal S1 and S2. No gallops, murmurs, or rubs. Normal PMI, no JVD. No pulse deficits. Respiratory: Lungs have equal breath sounds bilaterally, clear to auscultation and percussion. No rales, rhonchi or wheezes noted. No increased work of breathing, no retractions or nasal flaring. Abdomen/GI: Soft, non-tender, with normal bowel sounds. No distension or tympany. No guarding or rebound. No evidence of tenderness throughout. Back: No spinal tenderness. No costovertebral tenderness. Full range of motion. Skin: Warm, dry with normal turgor. Normal color with no rashes, no lesions, and no evidence of cellulitis. MS/ Extremity: Pulses equal, no cyanosis. Neurovascular intact. Full, normal range of motion. Neuro: Awake and alert, GCS 15, oriented to person, place, time, and situation. No gross motor or sensory deficits. Vital Signs: 01:13 BP 144 / 91; Pulse 80; Resp 18; Temp 98.3; Pulse Ox 98% on R/A; Weight 116.12 kg; pf1 Height 5 ft. 11 in. (180.34 cm); Pain 0/10; 01:13 Body Mass Index 35.70 (116.12 kg, 180.34 cm) pf1 MDM: 01:17 Patient medically screened. rust 01:18 Differential Diagnosis Patient states he just felt cold, afebrile here, he may be rust coming down with a viral URI however he did have runny nose congestion clear to auscultation bilateral with normal vital signs, patient to continue watchful waiting return if worsening.. Data reviewed: vital signs, nurses notes. Test considered but Not performed: EKG: regular rate and rhythm on auscultation. X-ray: clear to auscultation, normal vitals. Administered Medications: No medications were administered Disposition Summary: 05/16/22 01:20 Discharge Ordered Location: Home rust Condition: Stable rust Diagnosis - Muscle weakness (generalized) jr11 Discharge Instructions: - Discharge Summary Sheet jr11 - Weakness jr11 Forms: - Medication Reconciliation Form jr11 - Thank You Letter jr11 - Antibiotic Education jr11 - Prescription Opioid Use jr11 Signatures: Abraham Aranda MD MD jr11 Savi lara, RN RN pf1
--- NOTE | 2022-05-16 01:25 | ER ---
Nurse's Notes [facility] Name: Ronald Lino Age: 71 yrs Sex: Male : 1950 Arrival Date: 05/16/2022 Time: 01:04 Bed IW1 Private MD: Diagnosis: Muscle weakness (generalized) Presentation: 05/16 01:13 Chief complaint: Patient states: Generalized cold sensation with chills,onset 1 week. pf1 Patient denies any other symptoms. Coronavirus screen: Vaccine status: Patient reports receiving the 2nd dose of the covid vaccine. Client denies travel out of the [place] in the last 14 days. At this time, the client does not indicate any symptoms associated with coronavirus-19. Ebola Screen: Patient negative for fever greater than or equal to 101.5 degrees Fahrenheit, and additional compatible Ebola Virus Disease symptoms. Initial Sepsis Screen: Does the patient meet any 2 criteria? No. Patient's initial sepsis screen is negative. Does the patient have a suspected source of infection? No. Patient's initial sepsis screen is negative. Risk Assessment: Do you want to hurt yourself or someone else? Patient reports no desire to harm self or others. 01:13 Method Of Arrival: Ambulatory pf1 01:13 Acuity: LILA 4 pf1 01:15 Onset of symptoms was May 09, 2022. pf1 Triage Assessment: 05/15 01:15 General: Appears in no apparent distress. comfortable, well groomed, well developed, pf1 Behavior is calm, cooperative, appropriate for age, quiet. 01:15 General: Patient C/O generalized cold sensation with chills. onset 1 week. Pain: Denies pf1 pain. EENT: No deficits noted. No signs and/or symptoms were reported regarding the EENT system. Neuro: No deficits noted. Level of Consciousness is awake, alert, obeys commands, Oriented to person, place, time, situation. Cardiovascular: No deficits noted. Capillary refill < 3 seconds Patient's skin is warm and dry. Respiratory: No deficits noted. Airway is patent Trachea midline Respiratory effort is even, unlabored, Respiratory pattern is regular, symmetrical. GI: No deficits noted. No signs and/or symptoms were reported involving the gastrointestinal system. : No deficits noted. No signs and/or symptoms were reported regarding the genitourinary system. Derm: No deficits noted. No signs and/or symptoms reported regarding the dermatologic system. Musculoskeletal: No deficits noted. No signs and/or symptoms reported regarding the musculoskeletal system. Historical: - Allergies: 05/16 01:22 PENICILLINS; pf1 - PMHx: 01:22 Atrial fibrillation; diabetes mellitus; RA; pf1 - PSHx: 01:15 knee; pf1 - Immunization history:: Client reports receiving the 2nd dose of the Covid vaccine, Last tetanus immunization: < 10 years ago Pneumococcal vaccine is up to date, Flu vaccine is up to date. - Social history:: Smoking status: Patient denies any tobacco usage or history of. Patient/guardian denies using alcohol, street drugs. Screenin:30 Abuse screen: Denies threats or abuse. pf1 01:30 [facility] ED Fall Risk Assessment (Adult) History of falling in the last 3 months, pf1 including since admission No falls in past 3 months (0 pts) Confusion or Disorientation No (0 pts) Intoxicated or Sedated No (0 pts) Impaired Gait No (0 pts) Mobility Assist Device Used No (0 pt) Altered Elimination No (0 pt) Score/Fall Risk Level 0 - 2 = Low Risk Oriented to surroundings, Maintained a safe environment, Educated pt \T\ family on fall prevention, incl call for assistance when getting out of bed, Assessed \T\ reinforced patient's understanding of fall precautions, Provided non-skid footwear, Hourly rounding (assess needs \T\ fall precautionary measures) done, Used ambulatory aids as needed (educated on \T\ assisted with), Used gait belt as appropriate. Nutritional screening: No deficits noted. Tuberculosis screening: No symptoms or risk factors identified. Assessment: 01:15 General: see triage assessment. pf1 Vital Signs: 01:13 BP 144 / 91; Pulse 80; Resp 18; Temp 98.3; Pulse Ox 98% on R/A; Weight 116.12 kg; pf1 Height 5 ft. 11 in. (180.34 cm); Pain 0/10; 01:13 Body Mass Index 35.70 (116.12 kg, 180.34 cm) pf1 ED Course: 01:04 Patient arrived in ED. jj6 01:07 Abraham Aranda MD is Attending Physician. jr11 01:15 Arm band placed on right wrist. pf1 01:15 Patient has correct armband on for positive identification. pf1 01:21 Triage completed. pf1 01:24 No provider procedures requiring assistance completed. Patient did not have IV access pf1 during this emergency room visit. Administered Medications: No medications were administered Medication: 01:15 VIS not applicable for this client. pf1 Outcome: 01:20 Discharge ordered by . jr11 01:23 Discharged to home ambulatory. pf1 01:23 Condition: stable 01:23 Discharge instructions given to patient, Instructed on discharge instructions, follow up and referral plans. Demonstrated understanding of instructions, follow-up care. 01:24 Patient left the ED. pf1 Signatures: Yara Hernandez Jose, MD MD jr11 Savi lara RN RN pf1 Corrections: (The following items were deleted from the chart) 04:26 02/03 01:15 General: Patient C/O generalized cold sensation with chills. pf1 pf1 05/16 04:36 01:30 No provider procedures requiring assistance completed. pf1 pf1 04:36 01:30 Patient did not have IV access during this emergency room visit. pf1 pf1 04:36 01:30 Arm band placed on right wrist. pf1 pf1
[2022-05-16 01:55] VITALS: BP 144/91; TEMP 98.3; O2SAT 98
== END 2022-05-16 01:24 | disposition home or self-care (01) ==
LOC: ER 00:58
DX: M62.81 Muscle weakness (generalized) (principal); E11.9 Type 2 diabetes mellitus without complications; I48.91 Unspecified atrial fibrillation; Z88.0 Allergy status to penicillin
CPT/HCPCS: 99281

== ENCOUNTER 2022-07-03 18:32 | Emergency (ER) | payer OTHER ==
--- NOTE | 2022-07-03 21:03 | RAD REPORT ---
EXAM DESCRIPTION: Gill Single View07/03/2022 8:42 pm CLINICAL HISTORY: Chest pain COMPARISON: 2021 FINDINGS: The lungs appear clear of acute infiltrate. The heart is normal size IMPRESSION: No acute abnormalities displayed
[2022-07-03 21:28] LABS: Hematocrit 39.5 % (39.6-49.0); Lymphocytes % 39.7 % (15.3-44.8); MCV 91.6 fL (80-100); MPV 8.1 fL (7.6-11.3); RBC Red Blood Cell Count 4.31 M/uL (4.33-5.43)
[2022-07-03 21:53] LABS: ALT/SGPT 25 U/L (16-61); AST/SGOT 17 U/L (15-37); Albumin 3.9 g/dL (3.4-5.0); Alkaline Phosphatase 66 U/L (45-117); BUN Blood Urea Nitrogen 10 mg/dL (7-18); Bicarbonate 25 mEq/L (21-32); Bilirubin Total 0.3 mg/dL (0.2-1.0); Glomerular Filtration Rate 93 ml/min (=/>90); Glucose Level 121 mg/dL (74-106); Magnesium 1.9 mg/dL (1.6-2.4); NT PRO-BNP 18 pg/mL (<125); Potassium 3.6 mEq/L (3.5-5.1); Protein, Total 6.9 g/dL (6.4-8.2); Sodium Level 138 mEq/L (136-145); Troponin High Sensitivity 42.3 pg/mL (<58.9)
[2022-07-03 21:56] LABS: Bilirubin Direct < 0.1 mg/dL (0-0.2)
--- NOTE | 2022-07-03 22:05 | EDPHYS ---
Physician Documentation [facility] Name: Ronald Lino Age: 72 yrs Sex: Male : 1950 Arrival Date: 07/03/2022 Time: 18:36 Bed 2 Private MD: ED Physician Haja Altamirano HPI: 07/03 20:52 This 72 yrs old Black Male presents to ER via Ambulatory with complaints of Shortness kb Of Breath. 20:52 The patient has shortness of breath at rest. Onset: The symptoms/episode began/occurred kb today. Duration: The symptoms are continuous. The patient's shortness of breath is aggravated by nothing, is alleviated by nothing. Associated signs and symptoms: The patient has no apparent associated signs or symptoms. Severity of symptoms: At their worst the symptoms were mild in the emergency department the symptoms are unchanged. The patient has not experienced similar symptoms in the past. The patient has not recently seen a physician. Pt reports fatigue for the last few days and noticed his breathing was heavy today so he came to get checked. States he feels ok, but wanted to be safe. Historical: - Allergies: 18:42 PENICILLINS; hb - PMHx: 18:42 Atrial fibrillation; diabetes mellitus; RA; hb - PSHx: 18:42 knee; hb - Immunization history:: unsure. - Social history:: Smoking status: Patient denies any tobacco usage or history of. ROS: 20:52 Constitutional: Negative for fever, chills, and weight loss. kb 20:52 Constitutional: Positive for fatigue. 20:52 Respiratory: Positive for shortness of breath. 20:52 All other systems are negative. Exam: 20:51 Constitutional: This is a well developed, well nourished patient who is awake, alert, kb and in no acute distress. Head/Face: Normocephalic, atraumatic. ENT: Moist Mucous membranes Cardiovascular: Regular rate and rhythm with a normal S1 and S2. No gallops, murmurs, or rubs. No pulse deficits. Respiratory: Respirations even and unlabored. No increased work of breathing. Talking in full sentences Abdomen/GI: Soft, non-tender. No distention Skin: Warm, dry with normal turgor. Normal color. MS/ Extremity: Pulses equal, no cyanosis. Neurovascular intact. Full, normal range of motion. Neuro: Awake and alert, GCS 15, oriented to person, place, time, and situation. Moves all extremities. Normal gait. 20:51 ECG was reviewed by the Attending Physician. Vital Signs: 18:40 BP 136 / 97; Pulse 87; Resp 20; Temp 97.2; Pulse Ox 99% on R/A; Weight 114.31 kg; hb Height 5 ft. 11 in. ; Pain 0/10; 21:00 BP 144 / 84; Pulse 69; Resp 16; Pulse Ox 97% ; vc1 22:00 BP 132 / 79; Pulse 60; Resp 19; Pulse Ox 95% ; vc1 18:40 Body Mass Index 35.15 (114.31 kg, 180.34 cm) hb 18:40 Pain Scale: Adult hb MDM: 18:46 Patient medically screened. kb 20:52 Data reviewed: vital signs, nurses notes. kb 20:55 Differential diagnosis: asthma, Bronchitis pneumonia, pulmonary edema. kb 22:04 Counseling: I had a detailed discussion with the patient and/or guardian regarding: the kb historical points, exam findings, and any diagnostic results supporting the discharge/admit diagnosis, lab results, radiology results, the need for outpatient follow up, a family practitioner, to return to the emergency department if symptoms worsen or persist or if there are any questions or concerns that arise at home. 07/03 18:50 Order name: Basic Metabolic Panel; Complete Time: 22:01 kb 07/03 18:50 Order name: CBC with Diff; Complete Time: 21:37 kb 07/03 18:50 Order name: LFT's; Complete Time: 22:01 kb 07/03 18:50 Order name: Magnesium; Complete Time: 22:01 kb 07/03 18:50 Order name: NT PRO-BNP; Complete Time: 22:01 kb 07/03 18:50 Order name: Troponin HS; Complete Time: 22:01 kb 07/03 18:50 Order name: XRAY Chest (1 view); Complete Time: 21:54 kb 07/03 18:50 Order name: EKG; Complete Time: 18:51 kb 07/03 18:50 Order name: Cardiac monitoring; Complete Time: 20:52 kb 07/03 18:50 Order name: EKG - Nurse/Tech; Complete Time: 20:52 kb 07/03 18:50 Order name: IV Saline Lock; Complete Time: 21:21 kb 07/03 18:50 Order name: Labs collected and sent; Complete Time: 21:21 kb 07/03 18:50 Order name: O2 Per Protocol; Complete Time: 20:52 kb 07/03 18:50 Order name: O2 Sat Monitoring; Complete Time: 20:52 kb EC:51 Rate is 64 beats/min. Rhythm is regular. QRS [place] is Normal. MS interval is normal at kb 174 msec. QRS interval is normal at 96 msec. QT interval is normal at 408 msec. Administered Medications: No medications were administered Disposition Summary: 07/03/22 22:04 Discharge Ordered Location: Home kb Condition: Stable kb Diagnosis - Other fatigue kb - Dyspnea kb Followup: kb - With: Emergency Department - When: As needed - Reason: Worsening of condition Followup: kb - With: Private Physician - When: 2 - 3 days - Reason: Recheck today's complaints, Continuance of care, Re-evaluation by your physician Discharge Instructions: - Discharge Summary Sheet kb - Shortness of Breath, Adult, [id number] kb - Fatigue kb Forms: - Medication Reconciliation Form kb - Thank You Letter kb - Antibiotic Education kb - Prescription Opioid Use kb Signatures: Dispatcher [employer] EDJazmin Harris, YUDITH-C TOOLING INSPECTOR-Mei Allison, RN RN Piedad Tapia RN RN vc1
--- NOTE | 2022-07-03 22:05 | ER ---
Nurse's Notes [facility] Michael Name: Ronald Lnio Age: 72 yrs Sex: Male : 1950 Arrival Date: 07/03/2022 Time: 18:36 Bed 2 Private MD: Diagnosis: Other fatigue;Dyspnea Presentation: 07/03 18:40 Chief complaint: Fatigue and SOB since this afternoon. Denies pain. Coronavirus screen: hb At this time, the client does not indicate any symptoms associated with coronavirus-19. Ebola Screen: No symptoms or risks identified at this time. Initial Sepsis Screen: Does the patient meet any 2 criteria? No. Patient's initial sepsis screen is negative. Does the patient have a suspected source of infection? No. Patient's initial sepsis screen is negative. Risk Assessment: Do you want to hurt yourself or someone else? Patient reports no desire to harm self or others. Onset of symptoms was July 03, 2022. 18:40 Method Of Arrival: Ambulatory hb 18:40 Acuity: LILA 3 hb Triage Assessment: 21:00 General: Appears in no apparent distress. comfortable. Respiratory: Reports shortness vc1 of breath at rest Onset: The symptoms/episode began/occurred suddenly, the patient reports symptoms have resolved. Historical: - Allergies: 18:42 PENICILLINS; hb - PMHx: 18:42 Atrial fibrillation; diabetes mellitus; RA; hb - PSHx: 18:42 knee; hb - Immunization history:: unsure. - Social history:: Smoking status: Patient denies any tobacco usage or history of. Screenin:04 [facility] ED Fall Risk Assessment (Adult) History of falling in the last 3 months, vc1 including since admission No falls in past 3 months (0 pts) Confusion or Disorientation No (0 pts) Intoxicated or Sedated No (0 pts) Impaired Gait No (0 pts) Mobility Assist Device Used No (0 pt) Altered Elimination No (0 pt) Score/Fall Risk Level 0 - 2 = Low Risk Oriented to surroundings, Maintained a safe environment, Educated pt \T\ family on fall prevention, incl call for assistance when getting out of bed. Abuse screen: Denies threats or abuse. Nutritional screening: No deficits noted. Tuberculosis screening: No symptoms or risk factors identified. Assessment: 21:00 General: Appears in no apparent distress. comfortable, Behavior is calm, cooperative, vc1 appropriate for age. Pain: Denies pain. Neuro: Level of Consciousness is awake, alert, obeys commands, Oriented to person, place, time, situation, Appropriate for age. Cardiovascular: Rhythm is regular. Respiratory: Airway is patent Respiratory effort is even, unlabored, Breath sounds are clear. 22:03 Reassessment: Patient and/or family updated on plan of care and expected duration. Pain vc1 level reassessed. Patient is alert, oriented x 3, equal unlabored respirations, skin warm/dry/pink. Patient states symptoms have improved. Vital Signs: 18:40 BP 136 / 97; Pulse 87; Resp 20; Temp 97.2; Pulse Ox 99% on R/A; Weight 114.31 kg; hb Height 5 ft. 11 in. ; Pain 0/10; 21:00 BP 144 / 84; Pulse 69; Resp 16; Pulse Ox 97% ; vc1 22:00 BP 132 / 79; Pulse 60; Resp 19; Pulse Ox 95% ; vc1 18:40 Body Mass Index 35.15 (114.31 kg, 180.34 cm) hb 18:40 Pain Scale: Adult hb ED Course: 18:36 Patient arrived in ED. rg4 18:42 Triage completed. hb 18:42 Arm band placed on. hb 18:46 Jazmin Coronado FNP-C [facility]. kb 18:46 Haja Altamirano MD is Attending Physician. kb 20:44 XRAY Chest (1 view) In Process Unspecified. EDMS 20:52 Piedad Tapia, RN is Primary Nurse. vc1 21:00 Patient has correct armband on for positive identification. Placed in gown. Bed in low vc1 position. Call light in reach. Client placed on continuous cardiac and pulse oximetry monitoring. NIBP monitoring applied. 22:15 No provider procedures requiring assistance completed. IV discontinued, intact, vc1 bleeding controlled, No redness/swelling at site. Pressure dressing applied. Administered Medications: No medications were administered Medication: 22:05 VIS not applicable for this client. vc1 Outcome: 22:04 Discharge ordered by . kb 22:15 Discharged to home ambulatory. vc1 22:15 Condition: good 22:15 Discharge instructions given to patient, Instructed on discharge instructions, follow up and referral plans. Demonstrated understanding of instructions, follow-up care. 22:15 Patient left the ED. vc1 Signatures: Dispatcher [employer] EDJazmin Harris, SAEC YUDITH-Mei Allison, RN RN Shira Montero4 Piedad Tapia RN RN vc1
[2022-07-03 22:21] VITALS: TEMP 97.2
[2022-07-03 22:24] VITALS: BP 132/79; O2SAT 95
--- NOTE | 2022-07-06 12:33 | EKG ---
Test Date: 2022-07-03 Test Time: 20:46:53 Straight Line Press Setter: CHLOE MEASUREMENT RESULTS: Intervals: Rate: 64 UT: 174 QRSD: 96 QT: 396 QTc: 408 [place]: P: 32 UT: 174 QRS: -7 T: 37 INTERPRETIVE STATEMENTS: Normal sinus rhythm Septal infarct, age undetermined Compared to ECG 05/30/2021 23:17:10 Myocardial infarct finding now present Electronically Signed On 07-06-22 12:27:41 CDT by Sae Hopson
== END 2022-07-03 22:15 | disposition home or self-care (01) ==
LOC: ER 18:32
DX: R53.83 Other fatigue (principal); R06.00 Dyspnea, unspecified; I48.91 Unspecified atrial fibrillation; Z88.0 Allergy status to penicillin
CPT/HCPCS: 36415; 71045; 80048; 80076; 83735; 83880; 84484; 85025; 93005; 99283

== ENCOUNTER 2024-03-28 01:09 | Emergency (ER) | payer OTHER ==
[2024-03-28] MEDS ORDERED: ALBUTEROL 2.5 MG/3 ML NEB SOL ONE (02:32)
[2024-03-28] MEDS ORDERED: IPRATROPIUM BROM 0.5MG/2.5ML ONE (02:32)
[2024-03-28] MEDS ORDERED: METHYLPREDNISOLONE 125 MG INJ ONE (02:33)
[2024-03-28] MEDS ORDERED: MAGNES/ALUMIN/SIMET 30ML UCUP ONE (02:33)
[2024-03-28 03:01] LABS: Absolute Basophils 0.1 K/uL (0-0.5); Absolute Eosinophils 0.3 K/uL (0-0.5); Absolute Lymphocytes (CBC) 2.6 K/uL (0.7-4.9); Absolute Monocytes 0.7 K/uL (0.1-1.3); Absolute Neutrophil 3.4 K/uL (1.8-8.0); Basophils % 0.9 % (0-1.3); Eosinophils % 3.6 % (0-4.4); Hematocrit 41.4 % (39.6-49.0); Hemoglobin 13.6 g/dL (13.6-17.9); Lymphocytes % 36.3 % (15.3-44.8); MCHC 32.8 g/dL (32.0-36.0); MCV 94.3 fL (80-100); MPV 9.2 fL (7.6-11.3); Monocytes % 10.3 % (3.3-12.3); Neutrophils % 48.9 % (41.7-73.7); Platelets 221 thou/uL (152-406); RBC Red Blood Cell Count 4.39 M/uL (4.33-5.43); Red Cell Distribution Width 13.6 % (12.1-15.2)
[2024-03-28 03:05] LABS: D-Dimer 0.302 FEUug/mL (0-0.500); PTT, Activated Partial Thromb 35.9 SECONDS (24.3-36.9); Protime INR 1.07
[2024-03-28 03:16] LABS: ALT/SGPT 27 U/L (16-61); AST/SGOT 19 U/L (15-37); Albumin 3.6 g/dL (3.4-5.0); Albumin/Globulin Ratio 1.1 (1.1-1.8); Alkaline Phosphatase 63 U/L (45-117); Anion Gap 10.5 mEq/L (5.0-15.0); BUN Blood Urea Nitrogen 9 mg/dL (7-18); Bicarbonate 26 mEq/L (21-32); Bilirubin Total 0.3 mg/dL (0.2-1.0); Creatine Phosphokinase 234 U/L (39-308); Globulin 3.2 g/dL (2.3-3.5); Glomerular Filtration Rate 89 ml/min (=/>90); Glucose Level 180 mg/dL (74-106); Lipase 139 U/L (13-75); Magnesium 1.6 mg/dL (1.6-2.4); NT PRO-BNP 30 pg/mL (<125); Potassium 3.5 mEq/L (3.5-5.1); Protein, Total 6.8 g/dL (6.4-8.2); Sodium Level 139 mEq/L (136-145); Troponin High Sensitivity 48.2 pg/mL (<58.9)
[2024-03-28 03:52] LABS: Bilirubin Direct < 0.2 mg/dL (0-0.2); Bilirubin Indirect, Calculated 0.1 mg/dL (0.2-0.8)
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
--- NOTE | 2024-03-28 04:28 | RAD REPORT ---
EXAM DESCRIPTION: Chest Single View CLINICAL HISTORY: COUGH COMPARISON: None TECHNIQUE: Single AP view of the chest. FINDINGS: Lung volumes adequate. Cardiac silhouette is normal in size. No pneumothorax. No large pleural effusion. Minimal bibasilar reticular opacities, likely atelectasis. No focal consolidation. No acute bony finding. IMPRESSION: 1. No focal consolidation. 2. Minimal bibasilar reticular opacities, likely atelectasis. Electronically signed by: Edis Craig MD 03/28/2024 03:[address] [facility] Z9 Due to temporary technical issues with the [email or web address] reporting system, reports are being asa d by the in-house radiologist without review as a courtesy to ensure prompt reporting the interpreting radiologist is fully responsible for the content of the report. Transcribed Date/Time: 03/28/2024 4:28 AM
[2024-03-28 05:30] VITALS: BP 130/82; TEMP 98; O2SAT 98
--- NOTE | 2024-03-28 11:56 | EKG ---
Test Date: 2024-03-28 Test Time: 02:31:09 Tattoo Technician: KIMMIE MEASUREMENT RESULTS: Intervals: Rate: 71 AR: 208 QRSD: 88 QT: 382 QTc: 415 [place]: P: 25 AR: 208 QRS: -1 T: -1 INTERPRETIVE STATEMENTS: Sinus rhythm with premature supraventricular complexes Otherwise normal ECG Compared to ECG 06/13/2023 03:48:31 Left ventricular hypertrophy no longer present ST (T wave) deviation no longer present Electronically Signed On 03-28-24 11:55:29 [employer] WHE[employer] by Andres Newton
== END 2024-03-28 05:03 | disposition home or self-care (01) ==
LOC: ER 01:09
DX: R05.9 Cough, unspecified (principal); R09.89 Other specified symptoms and signs involving the circulatory and respiratory systems; F41.9 Anxiety disorder, unspecified; E11.9 Type 2 diabetes mellitus without complications; I48.91 Unspecified atrial fibrillation
CPT/HCPCS: 93005; 87040 ×2; 85025; 80048; 36415; 83735; 82550; 85610; 85379; 80076; 85730; 84484; 83690; 83880; 87804 ×2; 71045; 96374; 99285; J7613; J7644; J2919